=== PATIENT | male | born 1930 | race Hispanic/Latino ===

== ENCOUNTER 2018-04-18 09:58 | Emergency (ER) | payer MEDICARE ==
[2018-04-18 10:06] VITALS: BP 137/54
--- NOTE | 2018-04-18 13:19 | Emergency Department Report ---
Blank Doc - Documentation Documentation: 87yo male with no significant past medical history came in complaining of a low back pain for one week. Patient states he has had back pain for years and has got back surgery in the past. Patient with back pain is 5 out of 10 nonradiating no urinary or bowel incontinence no loss of sensation or strength.Denies nausea vomiting chest pain shortness of breath. Patient denies fever chills. Patient is under no acute distress. Patient relaxing in bed. Patient is refusing blood work, All risks explained
--- NOTE | 2018-04-18 13:44 | Cat Scan Report ---
CT LUMBAR SPINE WITHOUT CONTRAST: History: Back pain. Technique: Helical CT with sagittal and coronal reformatted images. Findings: There is multilevel degenerative disc disease and facet arthropathy. L2-3 and L5-S1 are the most affected levels. There is no evidence for compression deformity, subluxation or bone lesion. The posterior elements are in appropriate relationship. Although intraspinal contents are poorly imaged on CT, no central canal stenosis is appreciated. Impression: Lumbar spondylosis. No acute process detected.
[2018-04-18 13:45] LABS: Bilirubin,Urine NEG (Negative); Blood,Urine NEG (Negative); Color,Urine Yellow (Yellow); Protein,Urine <15 mg/dL mg/dL (Negative); Urobilinogen,Urine < 2.0 mg/dL (<2.0)
--- NOTE | 2018-04-18 14:29 | Emergency Department Report ---
ED Back Pain/Injury HPI - General Chief Complaint: Back Pain/Injury Stated Complaint: BACK PAIN Time Seen by Provider: 04/18/18 12:55 Source: patient Limitations: No Limitations - History of Present Illness Initial Comments: 87-year-old male no significant past medical history came in complaining of low back pain for one week. Pt has had a history of surgery in the past and states that it is worse with movement and is better with rest. Patient denies any nausea vomiting chest pain shortness of breath. Pt denies any fever or chills. Patient denies any injury or bowel incontinence. Pt denies any loss of sensation or strength. Patient has no saddle anesthesia. Patient is refusing blood work, all risks explained. MD Complaint: back pain -: Gradual, week(s) Similar Symptoms Previously: Yes Radiation: none Severity: mild Severity scale (0 -10): 5 Quality: aching Consistency: intermittent Improves With: immobilization Worsens With: movement Associated Symptoms: denies: confusion, weakness, chest pain, numbness, difficulty walking, cough, difficulty urinating, diaphoresis, incontinence, fever/chills, constipation, headaches, abdominal pain, loss of appetite, malaise , nausea/vomiting, rash, seizure, shortness of breath, syncope Treatments Prior to Arrival: acetaminophen - Related Data Previous Rx's Medication Instructions Recorded Last Taken Type traMADol [Ultram] 50 mg PO Q6HR PRN #8 tablet 04/18/18 Unknown Rx Allergies Allergy/AdvReac Type Severity Reaction Status Date / Time iodine Allergy Anaphylaxis Verified 04/18/18 10:01 ED Review of Systems ROS: Stated complaint: BACK PAIN Other details as noted in HPI Constitutional: denies: chills, fever Eyes: denies: eye pain, eye discharge, vision change ENT: denies: ear pain, throat pain Respiratory: denies: cough, shortness of breath, wheezing Cardiovascular: denies: chest pain, palpitations Endocrine: no symptoms reported Gastrointestinal: denies: abdominal pain, nausea, diarrhea Genitourinary: denies: urgency, dysuria Musculoskeletal: denies: back pain, joint swelling, arthralgia Skin: denies: rash, lesions Neurological: denies: headache, weakness, paresthesias Psychiatric: denies: anxiety, depression Hematological/Lymphatic: denies: easy bleeding, easy bruising ED Past Medical Hx - Past Medical History Hx Hypertension: Yes Additional medical history: high cholesterol - Surgical History Additional Surgical History: tonsillectomy, nerve removed from back. - Social History Smoking Status: Never Smoker Substance Use Type: None - Medications Home Medications: Home Medications Medication Instructions Recorded Confirmed Last Taken Type traMADol [Ultram] 50 mg PO Q6HR PRN #8 tablet 04/18/18 Unknown Rx ED Physical Exam - General Limitations: No Limitations General appearance: alert, in no apparent distress - Head Head exam: Present: atraumatic, normocephalic - Eye Eye exam: Present: normal appearance - ENT ENT exam: Present: mucous membranes moist - Neck Neck exam: Present: normal inspection - Respiratory Respiratory exam: Present: normal lung sounds bilaterally. Absent: respiratory distress - Cardiovascular Cardiovascular Exam: Present: regular rate, normal rhythm. Absent: systolic murmur, diastolic murmur, rubs, gallop - GI/Abdominal GI/Abdominal exam: Present: soft, normal bowel sounds - Rectal Rectal exam: Present: deferred - Extremities Exam Extremities exam: Present: normal inspection - Back Exam Back exam: Present: normal inspection, tenderness (+slightly tender to palpation of lower back, no loss of sensation or strength, good pulses present, no urine or bowel incontinence, no neurological symptoms) - Neurological Exam Neurological exam: Present: alert, oriented X3 - Psychiatric Psychiatric exam: Present: normal affect, normal mood - Skin Skin exam: Present: warm, dry, intact, normal color. Absent: rash ED Course Vital Signs 04/18/18 10:01 Temperature 97.7 F Pulse Rate 66 Respiratory 18 Rate Blood Pressure 137/54 O2 Sat by Pulse 96 Oximetry ED Medical Decision Making - Medical Decision Making 87 shoulder with no significant past medical history came in complaining of low back pain for 1 week. Patient denies any urinary or bowel incontinence. Patient denies any nausea vomiting chest pain shortness of breath. Patient denies any fever or chills. no saddle anesthesia. Patient CT scan shows a radiologist read: spondylolysis, no acute process I tried to convince patient did do blood work and EKG. Patient is refusing and wants to leave, all risks explained. At the time of disposition patient is in no acute distress. Patient will follow with his family doctor. Critical care attestation.: If time is entered above; I have spent that time in minutes in the direct care of this critically ill patient, excluding procedure time. ED Disposition Clinical Impression: Back pain, Spondylosis Disposition: DC- TO HOME OR SELFCARE Is pt being admited?: No Does the pt Need Aspirin: No Condition: Stable Instructions: Low Back Strain (ED) Prescriptions: traMADol [Ultram] 50 mg PO Q6HR PRN #8 tablet PRN Reason: Pain Referrals: MODE GLOVER MD [Staff Physician] - 3-5 Days
== END 2018-04-18 14:49 | disposition home or self-care (01) ==
LOC: ED 09:58
DX: M47.9 Spondylosis, unspecified (principal); M54.5 Low back pain; I10 Essential (primary) hypertension; E78.00 Pure hypercholesterolemia, unspecified; Z91.02 Food additives allergy status
CPT/HCPCS: 72131; 81001

== ENCOUNTER 2018-08-27 12:29 | Emergency (ER) | payer MEDICARE ==
[2018-08-27 13:40] LABS: Basophils % (Auto) 0.4 % (0.0-1.8); Eosinophils # (Auto) 0.1 K/mm3 (0.0-0.4); Eosinophils % (Auto) 1.5 % (0.0-4.3); Hematocrit 35.3 % (35.5-45.6); Hemoglobin 12.1 gm/dl (11.8-15.2); Lymphocytes # (Auto) 1.5 K/mm3 (1.2-5.4); Mean Corpuscular HGB Conc 34 % (32-34); Mean Corpuscular Hemoglobin 33 pg (28-32); Mean Corpuscular Volume 97 fl (84-94); Monocytes # (Auto) 0.5 K/mm3 (0.0-0.8); Platelet Count 133 K/mm3 (140-440); Red Blood Count 3.66 M/mm3 (3.65-5.03); Red Cell Distribution Width 14.7 % (13.2-15.2)
[2018-08-27 13:42] LABS: Creatine Kinase MB 1.7 ng/mL (0.0-4.0)
[2018-08-27 13:45] LABS: Alanine Aminotransferase 12 units/L (7-56); Albumin 4.3 g/dL (3.9-5); BUN/Creatinine Ratio 18; Blood Urea Nitrogen 14 mg/dL (9-20); Calcium 9.1 mg/dL (8.4-10.2); Hemolysis Index 8
[2018-08-27 13:47] LABS: INR 1.01 (0.87-1.13)
[2018-08-27 13:48] LABS: Partial Thromboplastin Time 30.3 Sec. (24.2-36.6)
[2018-08-27 13:51] LABS: Free T4 (Free Thyroxine) 1.2 ng/dL (0.76-1.46)
--- NOTE | 2018-08-27 14:06 | Emergency Department Report ---
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 He denies any room spinning sensation. He denies feeling as if he is going to pass out. He denies any vision change, slurred speech, shortness of breath, chest pain. He just feels as if he is unable to ambulate well for feel of falling over. He also has a past medical history of high cholesterol and hypertension. He called his primary care physician, Dr. Michael Bingham, who told him to come to the emergency department for further evaluation. No recent travel or sick contacts at home. He otherwise has not taken anything for his symptoms prior to presentation other than his normal home medications. ED Past Medical Hx - Past Medical History Hx Hypertension: Yes Additional medical history: high cholesterol/ VERTIGO - Surgical History Additional Surgical History: tonsillectomy, nerve removed from back. - Social History Smoking Status: Former Smoker Substance Use Type: None - Medications Home Medications: Home Medications Medication Instructions Recorded Confirmed Last Taken Type traMADol [Ultram] 50 mg PO Q6HR PRN #8 tablet 04/18/18 Unknown Rx ED Review of Systems ROS: Stated complaint: DIZZY Other details as noted in HPI Comment: All other systems reviewed and negative Constitutional: denies: chills, fever Eyes: denies: eye pain, eye discharge, vision change ENT: denies: ear pain, throat pain Respiratory: denies: cough, shortness of breath, wheezing Cardiovascular: denies: chest pain, palpitations Gastrointestinal: denies: abdominal pain, nausea, diarrhea Genitourinary: denies: urgency, dysuria Musculoskeletal: denies: back pain, joint swelling, arthralgia Skin: denies: rash, lesions Neurological: other (dizziness, feeling off balance). denies: weakness Physical Exam - Physical Exam Vital Signs: Vital Signs 08/27/18 12:48 Temperature 97.6 F Pulse Rate 54 L Respiratory 20 Rate Blood Pressure 135/64 O2 Sat by Pulse 97 Oximetry Physical Exam: GENERAL: The patient is well-developed well-nourished. HENT: Normocephalic. Atraumatic. Patient has moist mucous membranes. EYES: Extraocular motions are intact. Pupils equal reactive to light bilaterally. There is some fatigable horizontal nystagmus. NECK: Supple. Trachea is midline. CHEST/LUNGS: Clear to auscultation. There is no respiratory distress noted. HEART/CARDIOVASCULAR: Regular. There is no tachycardia. There is no murmur. ABDOMEN: Abdomen is soft, nontender. Patient has normal bowel sounds. There is no abdominal distention. SKIN: Skin is warm and dry. NEURO: The patient is awake, alert, and oriented. The patient is cooperative. The patient has no focal neurologic deficits. The patient has normal speech and gait. Cranial nerves II through XII grossly intact. No pronator drift. No dysmetria. MUSCULOSKELETAL: There is no tenderness or deformity. There is no limitation range of motion. There is no evidence of acute injury. ED Course Vital Signs 08/27/18 12:48 Temperature 97.6 F Pulse Rate 54 L Respiratory 20 Rate Blood Pressure 135/64 O2 Sat by Pulse 97 Oximetry - Consultations Consultation #1: 08/27/18 20:36 I spoke with the neurosurgeon supervisor [employer] and can supply at [facility], Dr. 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 He feels that the aneurysm is very small in size and given the patient's advanced age there is a very low probability of aneurysmal rupture and that the patient does not appear to require any immediate intervention or transfer at this time. He was able to give me the names of Sage Renteria and Asif Sparks, for the patient to follow up with outpatient. ED Medical Decision Making - Lab Data Result diagrams: 08/27/18 13:07 08/27/18 13:07 - EKG Data -: EKG Interpreted by Me EKG shows normal: sinus rhythm, axis, intervals (prolonged LA interval), QRS complexes (right bundle-branch block), ST-T waves Rate: bradycardia (54 bpm) - EKG Data When compared to previous EKG there are: previous EKG unavailable Interpretation: other (sinus bradycardia at 54 bpm, prolonged LA interval, right bundle branch block) - Radiology Data Radiology results: report reviewed CT HEAD WITHOUT CONTRAST: HISTORY: Dizziness. TECHNIQUE: Sequential CT images without contrast. FINDINGS: Images obtained show bilateral prominence of the sulci and ventricles. There are no abnormal intra- or extra-axial blood or fluid collections. There are no focal masses or evidence of mass effect. The swift white matter differentiation appears within normal limits. Regions of periventricular decreased attenuation are consistent with microangiopathic ischemic disease. The posterior fossa structures including the fourth ventricle, cerebellum, and brainstem appear normal. IMPRESSION: Evidence of atrophy and microangiopathic ischemic disease. No acute intracranial process noted. Transcribed By: TTR Dictated By: KHUSHBU BECKFORD JR, MD Electronically Authenticated By: KHUSHBU BECKFORD JR, MD Signed Date/Time: 08/27/18 1500 EXAM: CT ANGIO HEAD HISTORY: Dizziness, dysequilibrium, headache TECHNIQUE: Following IV administration of 100 cc of Omnipaque 350 axial helical imaging was performed through the brain with sagittal and coronal reformatted images and maximum intensity projection images obtained. Comparison: CT angiogram neck also performed today FINDINGS: There is mild fusiform aneurysmal dilatation (3.3 millimeters) of the M2 segment of the left middle cerebral artery at the trifurcation. There is no other evidence of aneurysm and no evidence of occlusion or hemodynamically significant stenosis of the major intracranial arteries. There is normal enhancement of the major intracranial venous structures. The ventricles are normal size. The visualized portions of the orbits, paranasal and mastoid sinuses are notable for mild to moderate bilateral ethmoid and maxillary sinus mucosal thickening with air-fluid levels in the maxillary sinuses. IMPRESSION: 1. Approximately 3.3 millimeter fusiform aneurysmal dilatation of the M2 segment of the left middle cerebral artery at the trifurcation. 2. No other evidence of aneurysm and no evidence of occlusion or hemodynamically significant stenosis of the major intracranial arteries. 3. Paranasal sinus mucosal thickening with air-fluid levels. This may represent changes of acute sinusitis. Transcribed By: ED Dictated By: BARBARA GRAY MD Electronically Authenticated By: BARBARA GRAY MD Signed Date/Time: 08/27/18 1646 EXAM: CT ANGIO NECK HISTORY: Dizziness, dysequilibrium, headache TECHNIQUE: Following IV administration of 100 cc of Omnipaque 350 axial helical imaging was performed through the neck with maximum intensity projection images obtained. Comparison: CT angiogram brain also performed today FINDINGS: There is normal enhancement of the cervical carotid and vertebral arteries without evidence of occlusion, stenosis, dissection or aneurysm. The vertebral arteries are codominant. There is atherosclerotic vascular calcification at the carotid bifurcation bilaterally. There is cervical spondylosis with multiple level degenerative disc and endplate change and multiple level degenerative facet change. The cervical soft tissues are notable for an approximately 2.4 centimeter nodule in the isthmus of the thyroid gland and approximately 1 centimeter nodule in the right lobe of the thyroid. IMPRESSION: 1. No evidence of occlusion, stenosis, dissection or aneurysm of the cervical carotid or vertebral arteries. 2. Cervical spondylosis. 3. Thyroid nodules. Comparison with previous imaging studies would be helpful. If no prior studies are available for comparison, nonemergent thyroid ultrasound may be helpful. Transcribed By: ED Dictated By: BARBARA GRAY MD Electronically Authenticated By: BARBARA GRAY MD Signed Date/Time: 08/27/18 6698 - Medical Decision Making This patient presents with the complaint of some dizziness as if he is unstable or having some disequilibrium. He felt that it was different from his vertigo which he treats compliantly. A CT scan of the head was done that does not show any bleed, shift, mass or any other acute process. EKG did not show any signs of ST elevation AR, ischemia or dysrhythmia. All the labs were unremarkable including a CBC, CMP, troponin, thyroid. To rule out a posterior atypical CVA, a CT angiography of the head and neck were done. 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 I spoken to a neurosurgeon at [facility], per the consultation section, and this does not require any immediate intervention or transfer to another facility and was given a few different names of appropriate neurosurgeons for outpatient follow- up. Patient was reevaluated multiple times over multiple hours and is feeling greatly improved. He no longer has any dizziness, lightheadedness or feelings of instability. He was seen walking around the emergency department multiple times and appeared stable while doing so. He has no focal, motor or sensory deficits and his cranial nerves and then intact. Vital signs stable throughout his ED course. I spoke with the patient in great detail regarding his lab and imaging results and the plan/need for outpatient follow-up with neurosurgery. He understands and agrees to the plan. - Differential Diagnosis vertigo, dysrhythmia, CVA, TIA, brain bleed, malignancy Critical Care Time: No Critical care attestation.: If time is entered above; I have spent that time in minutes in the direct care of this critically ill patient, excluding procedure time. ED Disposition Clinical Impression: Brain aneurysm, Dizziness Disposition: DC-01 TO HOME OR SELFCARE Is pt being admited?: No Condition: Stable Instructions: Lightheadedness (ED), Dizziness (ED) Additional Instructions: I have given you a name/referral for 2 different neurosurgeons to follow-up regarding your brain aneurysm that was found. Please return to the closest emergency department with any return of your symptoms, if element of headache, vision change, slurred speech or any neurological deficits, or with any acute distress. Referrals: Sage Renteria [Other] - 3-5 Days (Offices at [place] and [place]) Asif Sparks [Other] - 3-5 Days ([facility]) PRIMARY CARE, [Primary Care Provider] - 3-5 Days - Assessment Assessment Interval: Baseline - Level of Consciousness 1a. Level of Consciousness: alert/keenly responsive - LOC Questions 1b. LOC Questions: answers both correctly - LOC Command 1c. LOC Commands: performs tasks correctly - Best Gaze 2. Best Gaze: normal - Visual 3. Visual: no visual loss - Facial Palsy 4. Facial Palsy: normal symmetrical movement - Motor Arm 5b. Motor Arm Right: no drift 5a. Motor Arm Left: no drift - Motor Leg 6a. Motor Leg Left: no drift 6b. Motor Leg Right: no drift - Limb Ataxia 7. Limb Ataxia: absent - Sensory 8. Sensory: normal - Best Language 9. Best Language: no aphasia - Dysarthria 10. Dysarthria: normal - Extinction and Inattention 11. Extinction/Inattention: no abnormality - Scoring Total Score: 0 Stroke Severity: No Stroke Symptoms
--- NOTE | 2018-08-27 15:02 | Cat Scan Report ---
CT HEAD WITHOUT CONTRAST: HISTORY: Dizziness. TECHNIQUE: Sequential CT images without contrast. FINDINGS: Images obtained show bilateral prominence of the sulci and ventricles. There are no abnormal intra- or extra-axial blood or fluid collections. There are no focal masses or evidence of mass effect. The swift white matter differentiation appears within normal limits. Regions of periventricular decreased attenuation are consistent with microangiopathic ischemic disease. The posterior fossa structures including the fourth ventricle, cerebellum, and brainstem appear normal. IMPRESSION: Evidence of atrophy and microangiopathic ischemic disease. No acute intracranial process noted.
[2018-08-27 16:28] LABS: Bilirubin,Urine NEG (Negative); Blood,Urine NEG (Negative); Color,Urine Straw (Yellow); Protein,Urine <15 mg/dL mg/dL (Negative); Urobilinogen,Urine < 2.0 mg/dL (<2.0); WBC,Urine < 1.0 /HPF (0.0-6.0)
--- NOTE | 2018-08-27 16:47 | Cat Scan Report ---
FINAL REPORT EXAM: CT ANGIO HEAD HISTORY: Dizziness, dysequilibrium, headache TECHNIQUE: Following IV administration of 100 cc of Omnipaque 350 axial helical imaging was performed through the brain with sagittal and coronal reformatted images and maximum intensity projection images obtained. Comparison: CT angiogram neck also performed today FINDINGS: There is mild fusiform aneurysmal dilatation (3.3 millimeters) of the M2 segment of the left middle cerebral artery at the trifurcation. There is no other evidence of aneurysm and no evidence of occlusion or hemodynamically significant stenosis of the major intracranial arteries. There is normal enhancement of the major intracranial venous structures. The ventricles are normal size. The visualized portions of the orbits, paranasal and mastoid sinuses are notable for mild to moderate bilateral ethmoid and maxillary sinus mucosal thickening with air-fluid levels in the maxillary sinuses. IMPRESSION: 1. Approximately 3.3 millimeter fusiform aneurysmal dilatation of the M2 segment of the left middle cerebral artery at the trifurcation. 2. No other evidence of aneurysm and no evidence of occlusion or hemodynamically significant stenosis of the major intracranial arteries. 3. Paranasal sinus mucosal thickening with air-fluid levels. This may represent changes of acute sinusitis.
--- NOTE | 2018-08-27 16:54 | Cat Scan Report ---
FINAL REPORT EXAM: CT ANGIO NECK HISTORY: Dizziness, dysequilibrium, headache TECHNIQUE: Following IV administration of 100 cc of Omnipaque 350 axial helical imaging was performed through the neck with maximum intensity projection images obtained. Comparison: CT angiogram brain also performed today FINDINGS: There is normal enhancement of the cervical carotid and vertebral arteries without evidence of occlusion, stenosis, dissection or aneurysm. The vertebral arteries are codominant. There is atherosclerotic vascular calcification at the carotid bifurcation bilaterally. There is cervical spondylosis with multiple level degenerative disc and endplate change and multiple level degenerative facet change. The cervical soft tissues are notable for an approximately 2.4 centimeter nodule in the isthmus of the thyroid gland and approximately 1 centimeter nodule in the right lobe of the thyroid. IMPRESSION: 1. No evidence of occlusion, stenosis, dissection or aneurysm of the cervical carotid or vertebral arteries. 2. Cervical spondylosis. 3. Thyroid nodules. Comparison with previous imaging studies would be helpful. If no prior studies are available for comparison, nonemergent thyroid ultrasound may be helpful.
[2018-08-27 18:25] VITALS: BP 145/52
== END 2018-08-27 18:35 | disposition home or self-care (01) ==
LOC: ED 12:29
DX: I67.1 Cerebral aneurysm, nonruptured (principal); R42 Dizziness and giddiness; I10 Essential (primary) hypertension; E78.00 Pure hypercholesterolemia, unspecified; Z87.891 Personal history of nicotine dependence
CPT/HCPCS: 36415; 70450; 70496; 70498; 80053; 81001; 82550; 82553; 83880; 84439; 84443; 84484; 85025; 85610; 85730; 93005; 93010; 99284; Q9967

== ENCOUNTER 2019-08-20 12:31 | Inpatient (IN) | payer MEDICARE ==
[2019-08-20] MEDS ORDERED: AMIODARONE 150 MG in DEXTROSE 5% IN WATER 97 ML IV ONE (13:38)
[2019-08-20] MEDS ORDERED: ONDANSETRON 4 MG/2 ML INJ ONE (13:40)
[2019-08-20 13:45] LABS: Basophils % (Auto) 0.5 % (0.0-1.8); Eosinophils % (Auto) 0.5 % (0.0-4.3); Hematocrit 31.9 % (35.5-45.6); Hemoglobin 10.8 gm/dl (11.8-15.2); Lymphocytes # (Auto) 0.5 K/mm3 (1.2-5.4); Lymphocytes % (Auto) 12.2 % (13.4-35.0); Mean Corpuscular HGB Conc 34 % (32-34); Mean Corpuscular Volume 97 fl (84-94); Monocytes # (Auto) 0.2 K/mm3 (0.0-0.8); Monocytes % (Auto) 5.1 % (0.0-7.3); Platelet Count 161 K/mm3 (140-440); Red Blood Count 3.29 M/mm3 (3.65-5.03); Red Cell Distribution Width 15.3 % (13.2-15.2)
[2019-08-20 13:56] LABS: INR 1.13 (0.87-1.13)
[2019-08-20 13:57] LABS: Partial Thromboplastin Time 30.2 Sec. (24.2-36.6)
[2019-08-20] MEDS ORDERED: AMIODARONE 900 MG in DEXTROSE 5% IN WATER 482 ML IV SCH (14:00)
--- NOTE | 2019-08-20 14:03 | Emergency Department Report ---
ED General Adult HPI - General Chief complaint: Nausea/Vomiting/Diarrhea Stated complaint: N/V Time Seen by Provider: 08/20/19 13:14 Source: patient, EMS Mode of arrival: Stretcher Limitations: Other - History of Present Illness Initial comments: This is an 88-year-old man who came to the hospital after a bout of diarrhea at home. Nursing reported that the patient had soiled himself and stated that he apparently lost control of his urine and bowels. At the time of my encounter complained of nausea but stated he did not vomit. He apparently told the drill press set up operator said he had some lower abdominal discomfort but denied abdominal pain to me. While I was conducting a fairly detailed review of systems, the patient who was prior conscious and awake alert and answering questions perfectly appropriately with normal vital signs had conjugate gaze deviation to the right. I immediately tried to arouse him while I checked his monitor. It showed evidence of ventricular fibrillation shortly after his apparent brief seizure. Immediately, I began chest compressions and called for assistance. The chest compressions probably were of 10-15 seconds of duration when the patient regained his pulses. He was quite pale during the episode, of course. Upon regaining his pulses he looked quite erythematous but was able to communicate. His blood pressure was regained. He asked us if he "went to sleep". He continued to complain of nausea and was given ondansetron. A 12-lead EKG was obtained which showed a right bundle branch block and no evidence of ST elevation [place]. I elected to begin him on amiodarone. Cardiology was consulted and they are at the bedside now. His electrolytes etc. are yet pending. At no time did the patient complain of any chest pain or dyspnea. Severity scale (0 -10): 0 - Related Data Previous Rx's Medication Instructions Recorded Last Taken Type traMADol [Ultram] 50 mg PO Q6HR PRN #8 tablet 04/18/18 Unknown Rx Allergies Allergy/AdvReac Type Severity Reaction Status Date / Time iodine Allergy Anaphylaxis Verified 08/27/18 12:48 ED Review of Systems ROS: Stated complaint: N/V Other details as noted in HPI Constitutional: malaise, weakness. denies: chills, fever Eyes: denies: eye pain, eye discharge, vision change ENT: denies: ear pain, throat pain Respiratory: denies: cough, shortness of breath, wheezing Cardiovascular: denies: chest pain, palpitations Endocrine: no symptoms reported Gastrointestinal: abdominal pain, diarrhea, other (equal urinary incontinence). denies: nausea Genitourinary: denies: urgency, dysuria Musculoskeletal: denies: back pain, joint swelling, arthralgia Skin: denies: rash, lesions Neurological: denies: headache, weakness, paresthesias Psychiatric: denies: anxiety, depression Hematological/Lymphatic: denies: easy bleeding, easy bruising ED Past Medical Hx - Past Medical History Hx Hypertension: Yes Hx Dementia: Yes Additional medical history: high cholesterol/ VERTIGO - Surgical History Additional Surgical History: tonsillectomy, nerve removed from back. - Social History Smoking Status: Former Smoker Substance Use Type: None - Medications Home Medications: Home Medications Medication Instructions Recorded Confirmed Last Taken Type traMADol [Ultram] 50 mg PO Q6HR PRN #8 tablet 04/18/18 Unknown Rx ED Physical Exam - General Limitations: Other (initial exam) General appearance: alert, in no apparent distress - Head Head exam: Present: atraumatic, normocephalic - Eye Eye exam: Present: normal appearance. Absent: scleral icterus - ENT ENT exam: Present: mucous membranes moist - Neck Neck exam: Present: normal inspection. Absent: tenderness, meningismus - Respiratory Respiratory exam: Present: normal lung sounds bilaterally. Absent: respiratory distress - Cardiovascular Cardiovascular Exam: Present: regular rate, normal rhythm. Absent: systolic murmur, diastolic murmur, rubs, gallop - GI/Abdominal GI/Abdominal exam: Present: soft, normal bowel sounds. Absent: distended, tenderness, guarding, rebound, rigid - Rectal Rectal exam: Present: deferred - Extremities Exam Extremities exam: Present: normal inspection - Back Exam Back exam: Present: normal inspection - Neurological Exam Neurological exam: Present: alert, oriented X3, CN II-XII intact. Absent: motor sensory deficit - Psychiatric Psychiatric exam: Present: normal affect, normal mood - Skin Skin exam: Present: warm, dry, intact, normal color. Absent: rash ED Course Vital Signs 08/20/19 08/20/19 08/20/19 13:09 13:16 13:17 Temperature 97.4 F L Pulse Rate 55 L 58 L Respiratory 10 L 17 10 L Rate Blood Pressure 132/54 132/54 Blood Pressure 132/54 [Right] O2 Sat by Pulse 94 86 94 Oximetry 08/20/19 08/20/19 08/20/19 13:30 14:00 14:30 Temperature Pulse Rate 63 56 L 54 L Respiratory 12 10 L 13 Rate Blood Pressure 140/63 156/69 143/60 Blood Pressure [Right] O2 Sat by Pulse 95 97 96 Oximetry 08/20/19 15:01 Temperature Pulse Rate 53 L Respiratory 20 Rate Blood Pressure 150/69 Blood Pressure [Right] O2 Sat by Pulse 100 Oximetry - Reevaluation(s) Reevaluation #1: Pt has been seen by cardiology and referred to Dr. Mcdowell, Hospitalist staff for further evaluation. 08/20/19 14:50 ED Medical Decision Making - Lab Data Result diagrams: 08/20/19 13:23 08/20/19 13:23 Laboratory Results - last 24 hr 08/20/19 08/20/19 13:23 13:23 WBC 4.2 L RBC 3.29 L Hgb 10.8 L Hct 31.9 L MCV 97 H MCH 33 H MCHC 34 RDW 15.3 H Plt Count 161 Lymph % (Auto) 12.2 L [place] % (Auto) 5.1 Eos % (Auto) 0.5 Baso % (Auto) 0.5 Lymph # 0.5 L [place] # 0.2 Eos # 0.0 Baso # 0.0 Seg Neutrophils % 81.7 H Seg Neutrophils # 3.4 PT 14.2 INR 1.13 APTT 30.2 - EKG Data -: EKG Interpreted by Id EKG shows normal: sinus rhythm - EKG Data Interpretation: other (right bundle-branch block) Critical Care Time: Yes Critical care time in (mins) excluding proc time.: 60 Critical care attestation.: If time is entered above; I have spent that time in minutes in the direct care of this critically ill patient, excluding procedure time. ED Disposition Clinical Impression: Ventricular fibrillation, Right bundle branch block Disposition: - OP ADMIT IP TO THIS HOSP Is pt being admited?: Yes Does the pt Need Aspirin: Yes Condition: Stable Referrals: PRIMARY CARE, [Primary Care Provider] - 3-5 Days Time of Disposition: 14:53
[2019-08-20 14:12] LABS: Creatine Kinase MB 3.9 ng/mL (0.0-4.0)
[2019-08-20 14:13] LABS: Alanine Aminotransferase 8 units/L (7-56); BUN/Creatinine Ratio 24; Blood Urea Nitrogen 17 mg/dL (9-20); Calcium 8.7 mg/dL (8.4-10.2); Hemolysis Index 2
[2019-08-20] MEDS ORDERED: POTASSIUM CHLORIDE ER 20 MEQ TAB PO ONE ×2 (14:39→17:16)
--- NOTE | 2019-08-20 14:49 | Consultation ---
History of Present Illness Consult date: 08/20/19 Requesting physician: DENNISE MOSLEY Consult reason: other (vfib) History of present illness: The pt is an 88-year-old male with a past medical history of HTN, HLP, RBBB, Meniere's disease. He has been seen in our office in the past by Dr. Rios (last seen 10/2016). He presented with c/o nausea, vomiting, diarrhea, weakness and overall "feeling sick". While being evaluated in ED by Dr. Mosley, pt was noted to develop a blank stare with conjugate gaze deviation to the right (? seizure) and superintendent operations division showed ventricular fibrillation shortly after his apparent brief seizure. Immediately, Dr. Mosley chest compressions and called for assistance. The chest compressions lasted approx 10-15 seconds when the patient regained his pulses and began to regain consciousness. He asked if he "went to sleep". He continued to complain of nausea and was given ondansetron. A 12- lead EKG was obtained which showed a right bundle branch block and no evidence of ST elevation [place]. He has been initiated on IV amiodarone. On evaluation, pt does not recall the VF event. He simply states that he "feels sick" and c/o chills. He denies any current chest pain, palpitation, diaphoresis. Lexiscan MPI stress test done 09/2009 showed small to mod size partially reversible mild inferobasal perfusion defect, EF 61%. Past History Past Medical History: hypertension, hyperlipidemia, other (Meniere's disease) Medications and Allergies Allergies Allergy/AdvReac Type Severity Reaction Status Date / Time iodine Allergy Anaphylaxis Verified 08/27/18 12:48 Home Medications Medication Instructions Recorded Confirmed Last Taken Type traMADol [Ultram] 50 mg PO Q6HR PRN #8 tablet 04/18/18 Unknown Rx Active Meds: Active Medications Amiodarone HCl 900 mg/ (Dextrose) 500 mls @ 33.333 mls/hr IV DIRECT WILFRED; Protocol Last Admin: 08/20/19 14:46 Dose: 1 mg/min, 33.333 mls/hr Documented by: Review of Systems Constitutional: chills, weakness, no weight loss, no weight gain Ears, nose, mouth and throat: no ear pain, no nose pain, no sinus pressure, no sinus pain Cardiovascular: no chest pain, no orthopnea, no palpitations, no rapid/irregular heart beat, no edema, no lightheadedness, no shortness of breath, no dyspnea on exertion, no leg edema Respiratory: no cough, no shortness of breath, no dyspnea on exertion, no congestion, no wheezing, no pain on inspiration Gastrointestinal: nausea, vomiting, diarrhea, no abdominal pain, no constipation, no hematemesis, no coffee ground emesis, no BRBPR, no hematochezia Genitourinary Male: no dysuria, no hematuria, no flank pain, no urinary frequency, no urinary hesitancy Musculoskeletal: no neck stiffness, no neck pain, no shooting arm pain, no arm numbness/tingling, no low back pain Integumentary: no rash, no pruritis, no redness, no sores, no wounds Neurological: no head injury, no paralysis, no weakness, no parathesias, no numbness, no tingling Psychiatric: no anxiety Endocrine: no cold intolerance Hematologic/Lymphatic: no easy bruising, no easy bleeding Allergic/Immunologic: no urticaria, no wheezing Physical Examination Vital Signs Temp Pulse Resp BP Pulse Ox 97.4 F L 55 L 10 L 132/54 94 08/20/19 13:09 08/20/19 13:08/20/19 13:08/20/19 13:08/20/19 13:09 General appearance: no acute distress HEENT: Positive: PERRL, Normocephaly, Mucus Membranes Moist Neck: Positive: neck supple, trachea midline Cardiac: Positive: Reg Rate and Rhythm, S1/S2 Lungs: Positive: clear to auscultation Neuro: Positive: Grossly Intact Abdomen: Negative: Tender Skin: Negative: Rash Musculoskeletal: No Pain Extremities: Absent: edema Results 08/20/19 13:23 08/20/19 13:23 Cardiac Enzymes 08/20/19 08/20/19 Range/Units 13:23 13:23 AST 18 (5-40) units/L CK-MB (CK-2) 3.9 (0.0-4.0) ng/mL Coagulation 08/20/19 Range/Units 13:23 PT 14.2 (12.2-14.9) Sec. INR 1.13 (0.87-1.13) APTT 30.2 (24.2-36.6) Sec. CBC 08/20/19 Range/Units 13:23 WBC 4.2 L (4.5-11.0) K/mm3 RBC 3.29 L (3.65-5.03) M/mm3 Hgb 10.8 L (11.8-15.2) gm/dl Hct 31.9 L (35.5-45.6) % Plt Count 161 (140-440) K/mm3 Lymph # 0.5 L (1.2-5.4) K/mm3 [place] # 0.2 (0.0-0.8) K/mm3 Eos # 0.0 (0.0-0.4) K/mm3 Baso # 0.0 (0.0-0.1) K/mm3 Comprehensive Metabolic Panel 08/20/19 Range/Units 13:23 Sodium 140 (137-145) mmol/L Potassium 3.5 L (3.6-5.0) mmol/L Chloride 103.9 (98-107) mmol/L Carbon Dioxide 22 (22-30) mmol/L BUN 17 (9-20) mg/dL Creatinine 0.7 L (0.8-1.5) mg/dL Glucose 123 H (75-100) mg/dL Calcium 8.7 (8.4-10.2) mg/dL AST 18 (5-40) units/L ALT 8 (7-56) units/L Alkaline Phosphatase 73 (35-129) units/L Total Protein 6.5 (6.3-8.2) g/dL Albumin 4.0 (3.9-5) g/dL - Imaging and Cardiology Echo: pending EKG: report reviewed, image reviewed EKG interpretations - Telemetry EKG Rhythm: Sinus Rhythm - EKG Sinus rhythms and dysrhythmias: sinus rhythm AV and intraventricular conduction: right bundle branch block Assessment and Plan Pt presented with n/v/d. He was witnessed to have a brief bout of VFib in ED. ECG with RBBB (which appears chronic), no acute ischemic changes, trop negative x 1. Pt has been seen by Dr. Rios in the past. Lexiscan MPI stress test done 09/2009 showed small to mod size partially reversible mild inferobasal perfusion defect, EF 61%. Coronary angiography recommended for definitive diagnosis. Will tentatively plan for LHC on 08/23/2019. Obtain echo. Agree with IV amio. Further recs to follow per hospital course. The patient has been seen in conjunction with Dr. Marie who agrees with the assessment and plan of care. - Patient Problems (1) Ventricular fibrillation Current Visit: Yes Status: Acute (2) Nausea vomiting and diarrhea Current Visit: Yes Status: Acute (3) Seizure Current Visit: Yes Status: Suspected (4) HTN (hypertension) Current Visit: Yes Status: Chronic (5) Hyperlipidemia Current Visit: Yes Status: Chronic (6) Abnormal stress test Current Visit: Yes Status: Chronic (7) Right bundle branch block Current Visit: Yes Status: Chronic (8) Meniere's disease Current Visit: Yes Status: Chronic
[2019-08-20] MEDS ORDERED: ASPIRIN 81 MG TAB CHEW PO ONE (14:53)
--- NOTE | 2019-08-20 15:23 | XRay Report ---
CHEST 1 VIEW INDICATION: Arrhythmia. Nausea, vomiting, diarrhea. COMPARISON: None similar. FINDINGS: Portable, single, frontal chest radiograph demonstrates slight exaggerated though grossly n ormal cardiomediastinal silhouette. Slight left lower lung horizontal densities may represent atelect asis or scarring. Otherwise clear lungs without pleural effusions or CHF. Demineralized bones with fe w degenerative changes. EKG leads. IMPRESSION: No acute chest process, as described. Direct comparison with prior imaging would also be helpful, if available. Signer Name: Keesha Saldaña Signed: 08/20/2019 3:18 PM Workstation Name: [id number]
[2019-08-20] MEDS ORDERED: SODIUM CHLORIDE 0.9% 500 ML 500 ML IV SCH (16:00)
[2019-08-20] MEDS ORDERED: ASPIRIN 81 MG TAB CHEW ONE (17:15)
[2019-08-20] MEDS ORDERED: ACETAMINOPHEN 325 MG TAB PO PRN (21:00)
[2019-08-20] MEDS ORDERED: METOCLOPRAMIDE 10 MG/2 ML INJ IV PRN (21:00)
[2019-08-20] MEDS ORDERED: ONDANSETRON 4 MG/2 ML INJ IV PRN (21:00)
[2019-08-20] MEDS: FAMOTIDINE 20 MG/2 ML INJ IV SCH (21:44)
[2019-08-20] MEDS: HYDROmorphone 1 MG/1 ML INJ IV PRN (21:45)
[2019-08-20] MEDS: SODIUM CHLORIDE 0.9% 1000 ML 1,000 ML IV SCH (21:45)
[2019-08-20] MEDS ORDERED: PANTOPRAZOLE 40 MG INJ IV SCH (22:00)
[2019-08-20] MEDS: METOPROLOL TARTRATE 50 MG TAB PO SCH (22:17)
[2019-08-21 00:16] LABS: Bilirubin,Urine NEG (Negative); Blood,Urine NEG (Negative); Color,Urine Yellow (Yellow); Hyaline Casts,Urine 2 /LPF; Mucus,Urine FEW /HPF; Protein,Urine <15 mg/dL mg/dL (Negative)
[2019-08-21] MEDS: HYDROmorphone 1 MG/1 ML INJ IV PRN ×2 (04:57→21:18)
[2019-08-21] MEDS: ASPIRIN 325 MG TAB PO SCH (07:00)
--- NOTE | 2019-08-21 07:39 | Event Note ---
Date: 08/20/19 See H/p in reports Arrhythmias--???V fib with perfect resolution Acute Gastroenteritis Syncope
[2019-08-21] MEDS: SODIUM CHLORIDE 0.9% 1000 ML 1,000 ML IV SCH ×2 (08:29→19:00)
[2019-08-21] MEDS: METOPROLOL TARTRATE 50 MG TAB PO SCH ×2 (09:23→21:20)
[2019-08-21] MEDS: FAMOTIDINE 20 MG/2 ML INJ IV SCH ×2 (09:23→21:19)
--- NOTE | 2019-08-21 11:23 | History and Physical Report ---
CHIEF COMPLAINT: 1. Nausea and vomiting, multiple times. 2. Ventricular fibrillation while in the Emergency Room. HISTORY OF PRESENT ILLNESS: An 88-year-old male with past medical history of hypertension, hyperlipidemia, right bundle branch block, comes in for nausea, vomiting, diarrhea and weakness for one day. In the Emergency Room, the patient was actively vomiting. While in the Emergency Room, the patient developed a blank stare with conjugate deviation to the right and apparently monitoring and evaluation advisor showed ventricular fibrillation, because of which chest compressions were done for 10 to 15 seconds, after which there was spontaneous resolution of the V-fib with normal sinus rhythm. Repeat EKG showed right bundle branch block and no ST elevation. The patient was initiated on IV amiodarone for questionable transient ventricular fibrillation, hence admission to the ICU. No shortness of breath. The patient looks normal otherwise. Talking normally. Vomiting into emesis bag. PAST MEDICAL HISTORY: Hypertension, mild dementia and hyperlipidemia. PAST SURGICAL HISTORY: Tonsillectomy. SOCIAL HISTORY: Does not smoke. Former smoker. FAMILY HISTORY: Hypertension. CURRENT MEDICATION: Tramadol. REVIEW OF SYSTEMS: Significant for nausea, vomiting, and diarrhea and generalized weakness and passing out while in the Emergency Room with questionable ventricular fibrillation. Otherwise, review of systems negative. PHYSICAL EXAMINATION: GENERAL: Elderly male, cooperative during examination. VITAL SIGNS: Blood pressure is _140/82 mm hg temperature is 98, pulse is 46; and initial pulse was also low around 55, blood pressure 132/54. HEENT: Unremarkable. NECK: Supple, no lymphadenopathy, no thyromegaly. LUNGS: Clear to auscultation and percussion. Good air entry. CARDIOVASCULAR: S1, S2 heard. No gallop, no murmur, no rub. Apical impulse in left fifth intercostal space and midclavicular line. ABDOMEN: Soft and benign. Hernial orifices are normal. EXTREMITIES: Good pedal pulses. No pedal edema. CENTRAL NERVOUS SYSTEM: Alert and oriented x 4. LABORATORY DATA: EKG shows sinus bradycardia, heart rate of 54 per minute. Right bundle branch block. White count of 4200, H and H of 10.8 and 31.9, platelet count of 161,000. Sodium of 140, potassium of 3.5, chloride of 103, BUN and creatinine of 17 and 0.9, glucose of 123. Urine is normal. Repeat EKG shows heart rate of 49 per minute, right bundle branch block. ASSESSMENT AND PLAN: 1. Arrhythmias with questionable ventricular fibrillation. The patient initiated on amiodarone drip. The patient is to be switched to p.o. amiodarone in the next 12-24 hours. Sinus bradycardia. We will defer to Cardiology. Bradycardia is reasonable. No need for pacemaker at this point. 2. Acute gastritis. Continue Protonix and advance to clear liquids. 3. Hypertension. Continue antihypertensives. 4. Deep venous thrombosis prophylaxis, Lovenox 40 mg subcutaneous daily. We will also get echocardiogram. JOB# [id number] DILSHAD/MANNIE CARSON
--- NOTE | 2019-08-21 13:15 | Progress Note ---
Assessment and Plan - Patient Problems (1) Ventricular fibrillation Current Visit: Yes Status: Acute Plan to address problem: Ventricular fibrillation cardiac consult. Left heart cath on Friday. Echocardiogram pending. Troponin negative amiodarone initiated. (2) HTN (hypertension) Current Visit: Yes Status: Chronic Plan to address problem: Present has fair control blood pressure continue current beta ronak at this time. (3) Hyperlipidemia Current Visit: Yes Status: Chronic Plan to address problem: Continue statin LDL goal less than 70. (4) Meniere's disease Current Visit: Yes Status: Resolved (5) Seizure Current Visit: Yes Status: Suspected Plan to address problem: Patient just 1 episode of seizure activity would not initiate Or anything like that is particular time we'll observe. History Interval history: Patient 88 years old with a history of hypertension hyperlipidemia right bundle branch block Mnire's disease presented with nausea vomiting diarrhea weakness. Patient had a brief what appeared to be seizure activity along with ventricular fibrillation. Patient received CPR chest compressions in the ED and within 15 seconds his sensorium and pulse returned to normal. Patient was placed on amiodarone initial troponins negative. Patient evaluated by cardiology plan for left heart catheterization on Friday. Echo is pending. at present is regarding concerns feel good no chest pain no arrhythmias on exam since that time. resting comfortably no new concerns. Hospitalist Physical - Constitutional Vitals: Temp Pulse Resp BP Pulse Ox 97.3 F L 52 L 19 122/51 96 08/21/19 12:00 08/21/19 12:11 08/21/19 12:11 08/21/19 12:11 08/21/19 12:11 General appearance: Present: no acute distress - EENT Eyes: Present: PERRL, EOM intact ENT: hearing intact, clear oral mucosa, dentition normal - Neck Neck: Present: supple, normal ROM - Respiratory Respiratory: bilateral: CTA - Cardiovascular Rhythm: regular Heart Sounds: Present: S1 & S2 - Extremities Extremities: no ischemia, pulses intact, pulses symmetrical, No edema, normal temperature, normal color, Full ROM Peripheral Pulses: within normal limits - Abdominal General gastrointestinal: soft, non-tender, non-distended, normal bowel sounds, no hepatomegaly, no splenomegaly, no mass - Integumentary Integumentary: Present: clear, warm, dry - Psychiatric Psychiatric: appropriate mood/affect, intact judgment & insight - Neurologic Neurologic: CNII-XII intact, focal deficits, moves all extremities Results - Labs CBC & Chem 7: 08/20/19 13:23 08/20/19 13:23 Labs: Laboratory Last Values WBC 4.2 K/mm3 (4.5-11.0) L 08/20/19 13:23 RBC 3.29 M/mm3 (3.65-5.03) L 08/20/19 13:23 Hgb 10.8 gm/dl (11.8-15.2) L 08/20/19 13:23 Hct 31.9 % (35.5-45.6) L 08/20/19 13:23 MCV 97 fl (84-94) H 08/20/19 13:23 MCH 33 pg (28-32) H 08/20/19 13:23 MCHC 34 % (32-34) 08/20/19 13:23 RDW 15.3 % (13.2-15.2) H 08/20/19 13:23 Plt Count 161 K/mm3 (140-440) 08/20/19 13:23 Lymph % (Auto) 12.2 % (13.4-35.0) L 08/20/19 13:23 [place] % (Auto) 5.1 % (0.0-7.3) 08/20/19 13:23 Eos % (Auto) 0.5 % (0.0-4.3) 08/20/19 13:23 Baso % (Auto) 0.5 % (0.0-1.8) 08/20/19 13:23 Lymph # 0.5 K/mm3 (1.2-5.4) L 08/20/19 13:23 [place] # 0.2 K/mm3 (0.0-0.8) 08/20/19 13:23 Eos # 0.0 K/mm3 (0.0-0.4) 08/20/19 13:23 Baso # 0.0 K/mm3 (0.0-0.1) 08/20/19 13:23 Seg Neutrophils % 81.7 % (40.0-70.0) H 08/20/19 13:23 Seg Neutrophils # 3.4 K/mm3 (1.8-7.7) 08/20/19 13:23 PT 14.2 Sec. (12.2-14.9) 08/20/19 13:23 INR 1.13 (0.87-1.13) 08/20/19 13:23 APTT 30.2 Sec. (24.2-36.6) 08/20/19 13:23 Sodium 140 mmol/L (137-145) 08/20/19 13:23 Potassium 3.5 mmol/L (3.6-5.0) L 08/20/19 13:23 Chloride 103.9 mmol/L (98-107) 08/20/19 13:23 Carbon Dioxide 22 mmol/L (22-30) 08/20/19 13:23 18 mmol/L 08/20/19 13:23 BUN 17 mg/dL (9-20) 08/20/19 13:23 0.7 mg/dL (0.8-1.5) L 08/20/19 13:23 Estimated GFR > 60 ml/min 08/20/19 13:23 24 % 08/20/19 13:23 Glucose 123 mg/dL (75-100) H 08/20/19 13:23 POC Glucose 80 (70-105) 08/21/19 09:51 5.0 % (4-6) 08/20/19 21:00 Calcium 8.7 mg/dL (8.4-10.2) 08/20/19 13:23 Magnesium 2.00 mg/dL (1.7-2.3) 08/20/19 13:23 0.90 mg/dL (0.1-1.2) 08/20/19 13:23 AST 18 units/L (5-40) 08/20/19 13:23 ALT 8 units/L (7-56) 08/20/19 13:23 73 units/L (35-129) 08/20/19 13:23 106 units/L (55-170) 08/20/19 13:23 CK-MB (CK-2) 3.9 ng/mL (0.0-4.0) 08/20/19 13:23 CK-MB (CK-2) Rel Index 3.6 (0-4) 08/20/19 13:23 < 0.010 ng/mL (0.00-0.029) 08/21/19 03:50 6.5 g/dL (6.3-8.2) 08/20/19 13:23 4.0 g/dL (3.9-5) 08/20/19 13:23 1.6 % 08/20/19 13:23 21 units/L (13-60) 08/20/19 13:23 Yellow (Yellow) 08/21/19 00:00 Clear (Clear) 08/21/19 00:00 6.0 (5.0-7.0) 08/21/19 00:00 Ur Specific [place] 1.025 (1.003-1.030) 08/21/19 00:00 <15 mg/dl mg/dL (Negative) 08/21/19 00:00 Neg mg/dL (Negative) 08/21/19 00:00 20 mg/dL (Negative) 08/21/19 00:00 Neg (Negative) 08/21/19 00:00 Neg (Negative) 08/21/19 00:00 Neg (Negative) 08/21/19 00:00 2.0 mg/dL (<2.0) 08/21/19 00:00 Ur Leukocyte Esterase Neg (Negative) 08/21/19 00:00 2.0 /HPF (0.0-6.0) 08/21/19 00:00 3.0 /HPF (0.0-6.0) 08/21/19 00:00 U Epithel Cells (Auto) 2.0 /HPF (0-13.0) 08/21/19 00:00 Hyaline Casts 2 /LPF 08/21/19 00:00 Few /HPF 08/21/19 00:00 Blood Type O NEGATIVE 08/21/19 03:55 Antibody Screen Negative 08/21/19 03:55 Active Medications - Current Medications Current Medications: Generic Name Dose Route Start Last Admin Trade Name Freq PRN Reason Stop Dose Admin Acetaminophen 650 mg 08/20/19 21:00 Tylenol PO Q4H PRN Pain MILD(1-3)/Fever >100.5/HALL Aspirin 325 mg 08/21/19 10:00 08/21/19 07:00 Aspirin PO 325 mg QDAY WILFRED Administration Atorvastatin Calcium 20 mg 08/20/19 22:00 08/20/19 21:47 Lipitor PO 20 mg QHS WILFRED Administration Famotidine 20 mg 08/20/19 22:00 08/21/19 09:23 Pepcid IV 20 mg BID WILFRED Administration Hydromorphone HCl 0.5 mg 08/20/19 21:00 08/21/19 04:57 Dilaudid IV 0.5 mg Q3H PRN Administration Pain , Severe (7-10) Amiodarone HCl 900 mg/ 500 mls @ 33.333 mls/hr 08/20/19 14:00 08/20/19 20:45 Dextrose IV 0.5 mg/min DIRECT WILFRED 16.667 mls/hr Titration Protocol 1 MG/MIN Sodium Chloride 1,000 mls @ 100 mls/hr 08/20/19 21:00 08/21/19 08:29 Nacl 0.9% 1000 Ml IV 100 mls/hr DIRECT WILFRED Administration Metoclopramide HCl 10 mg 08/20/19 21:00 Reglan IV Q6H PRN Nausea And Vomiting Metoprolol Tartrate 25 mg 08/20/19 22:00 08/21/19 09:23 Lopressor PO Not Given BID WILFRED Ondansetron HCl 4 mg 08/20/19 21:00 Zofran IV Q3H PRN Nausea And Vomiting Sodium Chloride 10 ml 08/20/19 22:00 08/21/19 09:24 Sodium Chloride Flush Syringe 10 Ml IV 10 ml BID WILFRED Administration Sodium Chloride 10 ml 08/20/19 21:00 Sodium Chloride Flush Syringe 10 Ml IV PRN PRN LINE FLUSH
--- NOTE | 2019-08-21 14:11 | Progress Note ---
Assessment and Plan Patient is known to have hypertension and right bundle branch block followed by Dr. Hi in the past. Patient Presents to to the emergency room where he ended up having a episode of ventricular fibrillation and he was defibrillated and the currently doing reasonably well. He is scheduled to have a cardiac cath on Friday for further cardiac evaluation. Patient appears to be stable at this time. Continue current management - Patient Problems (1) Ventricular fibrillation Current Visit: Yes Status: Acute (2) HTN (hypertension) Current Visit: Yes Status: Chronic (3) Hyperlipidemia Current Visit: Yes Status: Chronic (4) Right bundle branch block Current Visit: Yes Status: Chronic Subjective Date of service: 08/21/19 Interval history: Patient is comfortable today denies chest pain difficulty breathing or palpitations. Objective Vital Signs Temp Pulse Pulse Resp BP BP Pulse Ox 08/21/19 13:41 47 L 19 126/51 98 08/21/19 13:31 45 L 20 126/51 98 08/21/19 13:21 51 L 22 126/51 98 08/21/19 13:11 48 L 18 126/51 97 08/21/19 13:01 55 L 16 126/51 97 08/21/19 13:00 48 L 19 98 08/21/19 12:51 56 L 15 122/51 97 08/21/19 12:41 51 L 16 122/51 98 08/21/19 12:31 56 L 17 122/51 95 08/21/19 12:21 57 L 20 122/51 97 08/21/19 12:11 52 L 19 122/51 96 08/21/19 12:00 97.3 F L 46 L 22 122/51 98 08/21/19 11:51 44 L 16 113/62 98 08/21/19 11:41 46 L 19 113/62 97 08/21/19 11:31 43 L 17 113/62 98 08/21/19 11:21 45 L 14 113/62 97 08/21/19 11:11 46 L 18 113/62 98 08/21/19 11:00 48 L 13 122/58 98 08/21/19 10:51 50 L 13 113/62 99 08/21/19 10:41 45 L 18 113/62 99 08/21/19 10:31 45 L 17 113/62 97 08/21/19 10:21 49 L 14 113/62 98 08/21/19 10:11 44 L 19 113/62 96 08/21/19 10:00 49 L 12 113/62 95 08/21/19 09:51 44 L 15 115/31 95 08/21/19 09:41 49 L 10 L 115/31 96 08/21/19 09:31 46 L 18 115/31 98 08/21/19 09:23 47 L 115/31 08/21/19 09:21 46 L 18 115/31 95 08/21/19 09:11 54 L 13 115/31 97 08/21/19 09:01 42 L 15 115/31 96 08/21/19 09:00 50 L 21 96 08/21/19 08:51 44 L 15 122/32 97 08/21/19 08:41 45 L 14 122/32 98 08/21/19 08:31 43 L 16 122/32 96 08/21/19 08:21 45 L 17 122/32 94 08/21/19 08:11 41 L 16 122/32 95 08/21/19 08:01 48 L 16 122/32 97 08/21/19 08:00 98.1 F 08/21/19 07:51 46 L 17 110/29 96 08/21/19 07:41 43 L 15 110/29 98 08/21/19 07:31 41 L 15 110/29 98 08/21/19 07:21 47 L 17 110/29 96 08/21/19 07:11 53 L 10 L 110/29 96 08/21/19 07:01 43 L 17 101/26 96 08/21/19 06:51 46 L 20 101/26 97 08/21/19 06:41 47 L 11 L 101/26 97 08/21/19 06:31 45 L 16 101/26 94 08/21/19 06:21 49 L 16 90 08/21/19 06:10 38 L 16 101/26 94 08/21/19 06:00 42 L 10 L 101/26 96 08/21/19 05:50 41 L 14 121/46 96 08/21/19 05:40 42 L 13 121/46 95 08/21/19 05:30 47 L 15 121/46 97 08/21/19 05:20 39 L 12 121/46 97 08/21/19 05:10 46 L 13 121/46 98 09/28/19 05:00 44 L 45 L 15 121/46 96 08/21/19 04:50 42 L 15 122/54 96 08/21/19 04:40 46 L 9 L 122/54 97 08/21/19 04:30 53 L 12 122/54 96 08/21/19 04:20 46 L 19 122/54 97 08/21/19 04:10 46 L 17 122/54 96 08/21/19 04:00 97.8 F 50 L 17 120/58 97 08/21/19 03:50 50 L 13 120/58 97 08/21/19 03:40 47 L 15 120/58 97 08/21/19 03:30 48 L 16 120/58 97 08/21/19 03:20 43 L 14 120/58 97 08/21/19 03:10 43 L 15 120/58 97 08/21/19 03:00 45 L 14 120/58 96 08/21/19 02:50 141 H 117/46 95 08/21/19 02:40 46 L 18 117/46 97 08/21/19 02:30 43 L 18 117/46 96 08/21/19 02:20 44 L 17 117/46 96 08/21/19 02:10 49 L 17 117/46 97 08/21/19 02:00 46 L 17 117/46 97 08/21/19 01:50 51 L 14 114/54 97 08/21/19 01:40 48 L 16 114/54 97 08/21/19 01:30 53 L 15 114/54 96 08/21/19 01:20 52 L 17 114/54 97 08/21/19 01:14 48 L 18 97 08/21/19 01:10 46 L 17 114/54 98 08/21/19 01:00 50 L 15 114/54 98 08/21/19 00:50 45 L 16 136/59 96 08/21/19 00:40 49 L 12 136/59 99 08/21/19 00:30 49 L 16 136/59 99 08/21/19 00:20 49 L 15 136/59 97 08/21/19 00:10 49 L 16 136/59 98 08/21/19 00:00 57 L 18 136/59 95 08/20/19 23:50 62 18 149/86 97 08/20/19 23:40 59 L 18 149/86 94 08/20/19 23:36 97.5 F L 08/20/19 23:30 59 L 12 148/53 97 08/20/19 23:20 50 L 12 148/53 98 08/20/19 23:10 51 L 13 145/55 99 08/20/19 23:00 54 L 17 145/55 98 08/20/19 22:50 52 L 13 154/56 97 08/20/19 22:40 57 L 18 150/54 97 08/20/19 22:36 51 L 10 L 150/54 96 08/20/19 22:30 56 L 12 150/54 97 08/20/19 22:20 49 L 12 147/53 98 08/20/19 22:17 50 L 08/20/19 22:10 49 L 9 L 116/66 96 08/20/19 22:00 52 L 16 147/58 99 08/20/19 21:50 55 L 17 147/58 97 08/20/19 21:40 62 12 147/58 99 08/20/19 21:30 52 L 9 L 147/58 96 08/20/19 21:20 50 L 10 L 80/61 95 08/20/19 21:10 58 L 14 141/59 98 08/20/19 21:00 55 L 16 141/59 97 08/20/19 20:50 58 L 15 138/59 95 08/20/19 20:40 56 L 10 L 146/66 96 08/20/19 20:30 52 L 52 L 14 146/66 96 08/20/19 20:27 57 L 11 L 08/20/19 20:10 53 L 11 L 147/63 97 08/20/19 20:00 59 L 20 147/63 97 08/20/19 19:50 59 L 15 147/63 97 08/20/19 19:40 54 L 13 147/63 98 08/20/19 19:34 53 L 10 L 135/64 99 08/20/19 19:30 55 L 10 L 147/63 96 08/20/19 19:20 63 12 135/64 99 08/20/19 19:10 58 L 12 135/64 98 08/20/19 19:00 53 L 13 135/64 96 08/20/19 18:50 61 13 147/91 98 08/20/19 18:40 56 L 13 147/91 98 08/20/19 18:30 55 L 10 L 146/67 08/20/19 18:20 58 L 15 146/67 99 08/20/19 18:10 62 11 L 146/67 98 08/20/19 18:00 61 12 146/67 95 08/20/19 17:50 57 L 17 152/63 94 08/20/19 17:40 57 L 14 152/63 96 08/20/19 17:30 58 L 17 152/63 94 08/20/19 17:20 56 L 14 147/60 96 08/20/19 17:10 60 21 147/60 99 08/20/19 17:00 59 L 14 147/60 08/20/19 16:50 59 L 16 148/44 99 08/20/19 16:40 55 L 12 148/44 99 08/20/19 16:30 12 148/44 98 08/20/19 16:20 17 138/51 99 08/20/19 16:10 19 138/51 98 08/20/19 16:00 20 138/67 100 08/20/19 15:50 13 138/67 99 08/20/19 15:40 16 138/67 97 08/20/19 15:30 20 138/67 85 08/20/19 15:20 56 L 11 L 150/69 90 08/20/19 15:10 46 L 13 150/69 100 08/20/19 15:01 53 L 20 150/69 100 08/20/19 14:30 54 L 13 143/60 96 - Physical Examination General: Appears Well HEENT: Positive: PERRL, Normocephaly, Mucus Membranes Moist Neck: Positive: neck supple, trachea midline Cardiac: Positive: Reg Rate and Rhythm Lungs: Positive: clear to auscultation Neuro: Positive: Grossly Intact Abdomen: Positive: Soft. Negative: Tender Skin: Negative: Rash Musculoskeletal: No Pain Extremities: Absent: edema - Labs and Meds Cardiac Enzymes 08/20/19 08/20/19 Range/Units 13:23 13:23 AST 18 (5-40) units/L CK-MB (CK-2) 3.9 (0.0-4.0) ng/mL Comprehensive Metabolic Panel 08/20/19 Range/Units 13:23 Sodium 140 (137-145) mmol/L Potassium 3.5 L (3.6-5.0) mmol/L Chloride 103.9 (98-107) mmol/L Carbon Dioxide 22 (22-30) mmol/L BUN 17 (9-20) mg/dL Creatinine 0.7 L (0.8-1.5) mg/dL Glucose 123 H (75-100) mg/dL Calcium 8.7 (8.4-10.2) mg/dL AST 18 (5-40) units/L ALT 8 (7-56) units/L Alkaline Phosphatase 73 (35-129) units/L Total Protein 6.5 (6.3-8.2) g/dL Albumin 4.0 (3.9-5) g/dL - Imaging and Cardiology EKG: report reviewed, image reviewed Echo: pending - EKG Sinus rhythms and dysrhythmias: sinus rhythm AV and intraventricular conduction: right bundle branch block
--- NOTE | 2019-08-21 14:59 | Consultation ---
History of Present Illness - Reason for Consult Consult date: 08/21/19 Vfib arrest Requesting physician: SIL ANSARI - History of Present Illness 88 y/o man who actually came to the ED for several days of nausea and vomiting subsequently passed out in the ED and was found to be in Vfib arrest. CPR was started and patient had ROSC without any drug therapy it appears. Patient thought he went to sleep. He also may have had a seizure or seizure like activity right before this based on the ED note. He is scheduled for [facility] on Friday and is in the ICU for observation give his presentation. Past History Past Medical History: hypertension, hyperlipidemia, other (Meniere's disease) Medications and Allergies Allergies Allergy/AdvReac Type Severity Reaction Status Date / Time iodine Allergy Anaphylaxis Verified 08/27/18 12:48 Home Medications Medication Instructions Recorded Confirmed Last Taken Type traMADol [Ultram] 50 mg PO Q6HR PRN #8 tablet 04/18/18 08/20/19 Unknown Rx Active Meds: Active Medications Acetaminophen (Tylenol) 650 mg PO Q4H PRN PRN Reason: Pain MILD(1-3)/Fever >100.5/HALL Aspirin (Aspirin) [address] [facility] Last Admin: 08/21/19 07:00 Dose: 325 mg Documented by: Atorvastatin Calcium (Lipitor) [address] [facility] Last Admin: 08/20/19 21:47 Dose: 20 mg Documented by: Famotidine (Pepcid) [address] [facility] Last Admin: 08/21/19 09:23 Dose: 20 mg Documented by: Hydromorphone HCl (Dilaudid) 0.5 mg IV Q3H PRN PRN Reason: Pain , Severe (7-10) Last Admin: 08/21/19 04:57 Dose: 0.5 mg Documented by: Sodium Chloride (Nacl 0.9% 1000 Ml) 1,000 mls @ 100 mls/hr IV DIRECT [facility] Last Admin: 08/21/19 08:29 Dose: 100 mls/hr Documented by: Amiodarone HCl 900 mg/ (Dextrose) 500 mls @ 16.667 mls/hr IV DIRECT [facility]; Protocol Metoclopramide HCl (Reglan) 10 mg IV Q6H PRN PRN Reason: Nausea And Vomiting Metoprolol Tartrate (Lopressor) [address] [facility] Last Admin: 08/21/19 09:23 Dose: Not Given Documented by: Ondansetron HCl (Zofran) 4 mg IV Q3H PRN PRN Reason: Nausea And Vomiting Sodium Chloride (Sodium Chloride Flush Syringe 10 Ml) [address] [facility] Last Admin: 08/21/19 09:24 Dose: 10 ml Documented by: Sodium Chloride (Sodium Chloride Flush Syringe 10 Ml) 10 ml IV PRN PRN PRN Reason: LINE FLUSH Review of Systems All systems: negative Exam - Constitutional Vitals: Temp Pulse Resp BP Pulse Ox 97.3 F L 47 L 19 126/51 98 08/21/19 12:00 08/21/19 13:41 08/21/19 13:41 08/21/19 13:41 08/21/19 13:41 Results - Labs CBC & Chem 7: 08/20/19 13:23 08/20/19 13:23 Labs: Abnormal lab results 08/20/19 08/21/19 08/21/19 Range/Units 22:02 01:56 05:11 POC Glucose 122 H 130 H 123 H (70-105) - Imaging and Cardiology Chest x-ray: image reviewed (no evidence of acute lung disease) Assessment and Plan 88 y/o male with sinus bradycardia, vfib arrest after what sounds like seizure like activity. 1. Echo done but not read yet 2. Scheduled for [facility] on Friday 3. No labs today, so ordered CMP with Mag and Phos, and CBC for today. 4. Continue amio but close monitoring of bradycardia. So far asymptomatic.
[2019-08-21] MEDS ORDERED: AMIODARONE 900 MG in DEXTROSE 5% IN WATER 482 ML IV SCH (15:00)
[2019-08-21 15:35] LABS: Hemoglobin 10.5 gm/dl (11.8-15.2); Mean Corpuscular HGB Conc 34 % (32-34); Mean Corpuscular Volume 98 fl (84-94); Platelet Count 157 K/mm3 (140-440); Red Blood Count 3.17 M/mm3 (3.65-5.03); Red Cell Distribution Width 15.3 % (13.2-15.2)
[2019-08-21 16:29] LABS: Alanine Aminotransferase 7 units/L (7-56); Albumin 3.5 g/dL (3.9-5); BUN/Creatinine Ratio 20; Blood Urea Nitrogen 16 mg/dL (9-20); Calcium 7.9 mg/dL (8.4-10.2); Hemolysis Index 4
[2019-08-21] MEDS ORDERED: diphenhydrAMINE 50 MG/ML VIAL IV ONE (23:17)
[2019-08-22] MEDS ORDERED: LORazepam 2 MG/ML VIAL IV ONE (01:15)
[2019-08-22] MEDS: HYDROmorphone 1 MG/1 ML INJ IV PRN ×3 (01:28→21:31)
[2019-08-22] MEDS: SODIUM CHLORIDE 0.9% 1000 ML 1,000 ML IV SCH ×2 (04:55→15:00)
[2019-08-22] MEDS: ASPIRIN 325 MG TAB PO SCH (10:00)
[2019-08-22] MEDS: METOPROLOL TARTRATE 50 MG TAB PO SCH ×2 (10:00→21:32)
[2019-08-22] MEDS: FAMOTIDINE 20 MG/2 ML INJ IV SCH ×2 (10:00→21:32)
--- NOTE | 2019-08-22 11:24 | Progress Note ---
Assessment and Plan Patient is known to have hypertension and right bundle branch block followed by Dr. Hi in the past. Patient Presents to to the emergency room where he ended up having a episode of ventricular fibrillation and he was defibrillated and the currently doing reasonably well. He is scheduled to have a cardiac cath on Friday for further cardiac evaluation. Patient appears to be stable at this time. Continue current management - Patient Problems (1) Ventricular fibrillation Current Visit: Yes Status: Acute (2) HTN (hypertension) Current Visit: Yes Status: Chronic (3) Hyperlipidemia Current Visit: Yes Status: Chronic (4) Right bundle branch block Current Visit: Yes Status: Chronic Subjective Date of service: 08/22/19 Interval history: Patient is comfortable today denies chest pain difficulty breathing or palpitations. Patient is scheduled for cardiac catheterization tomorrow. During the night he needed restraints. Objective Vital Signs Temp Pulse Pulse Resp BP Pulse Ox 08/22/19 11:11 59 L 14 132/57 97 08/22/19 11:01 62 16 142/61 95 08/22/19 10:51 56 L 21 143/51 95 08/22/19 10:41 62 18 143/51 95 08/22/19 10:31 62 13 143/51 95 08/22/19 10:21 59 L 17 143/51 97 08/22/19 10:11 64 15 143/51 98 08/22/19 10:01 68 12 143/51 95 08/22/19 10:00 55 L 143/51 08/22/19 09:51 99 H 16 148/66 93 08/22/19 09:41 48 L 15 148/66 96 08/22/19 09:35 97.1 F L 08/22/19 09:31 43 L 15 148/66 96 08/22/19 09:21 46 L 12 148/66 96 08/22/19 09:11 47 L 15 148/66 96 08/22/19 09:00 47 L 59 L 15 148/66 94 08/22/19 08:51 52 L 21 139/59 97 08/22/19 08:41 60 14 139/59 97 08/22/19 08:31 62 24 139/59 94 08/22/19 08:21 46 L 15 139/59 95 08/22/19 08:11 48 L 16 139/59 95 09/29/19 08:00 48 L 15 139/59 94 08/22/19 07:51 50 L 17 136/55 95 08/22/19 07:41 51 L 15 136/55 94 08/22/19 07:31 51 L 15 136/55 95 08/22/19 07:21 52 L 16 136/55 94 08/22/19 07:11 53 L 15 136/55 95 08/22/19 07:01 52 L 17 136/55 93 08/22/19 06:51 61 15 145/49 94 08/22/19 06:41 55 L 17 145/49 93 08/22/19 06:31 62 18 145/49 95 08/22/19 06:21 79 15 145/49 94 08/22/19 06:11 75 16 145/49 95 08/22/19 06:01 78 11 L 145/49 93 08/22/19 05:51 79 14 118/52 93 08/22/19 05:41 66 21 118/52 93 08/22/19 05:31 73 17 118/52 91 08/22/19 05:21 47 L 13 118/52 94 08/22/19 05:10 48 L 15 118/52 93 08/22/19 05:01 51 L 15 118/52 92 08/22/19 05:00 53 L 20 98 08/22/19 04:51 52 L 17 162/71 92 08/22/19 04:41 51 L 15 162/71 93 08/22/19 04:31 54 L 17 162/71 91 08/22/19 04:21 55 L 17 162/71 92 08/22/19 04:11 60 13 162/71 94 08/22/19 04:01 86 22 162/71 93 08/22/19 03:51 74 25 H 158/63 90 08/22/19 03:41 77 13 158/63 93 08/22/19 03:31 72 18 158/63 96 08/22/19 03:21 73 24 158/63 92 08/22/19 03:11 70 22 158/63 93 08/22/19 03:01 83 19 158/63 94 08/22/19 02:51 92 H 21 150/60 95 08/22/19 02:41 63 17 150/60 94 08/22/19 02:31 57 L 19 150/60 95 08/22/19 02:21 56 L 12 150/60 95 08/22/19 02:11 61 20 150/60 95 08/22/19 02:01 55 L 21 150/60 95 08/22/19 01:51 56 L 16 160/73 90 08/22/19 01:41 55 L 16 160/73 94 08/22/19 01:31 55 L 15 160/73 95 08/22/19 01:21 54 L 18 125/83 98 08/22/19 01:11 57 L 18 125/83 97 08/22/19 01:01 62 18 160/73 08/22/19 01:00 47 L 18 98 08/22/19 00:51 68 23 139/68 97 08/22/19 00:41 54 L 16 139/68 98 08/22/19 00:31 52 L 16 139/68 84 08/22/19 00:21 51 L 14 139/68 78 L 08/22/19 00:11 53 L 14 139/68 95 08/22/19 00:01 50 L 16 139/68 97 08/22/19 00:00 98.4 F 08/21/19 23:51 46 L 17 146/60 97 08/21/19 23:43 43 L 20 146/60 97 08/21/19 23:41 42 L 19 121/51 97 08/21/19 23:31 44 L 15 121/51 99 08/21/19 23:25 54 L 121/51 08/21/19 23:01 71 17 121/51 96 08/21/19 22:51 46 L 22 121/51 98 08/21/19 22:49 56 L 20 121/51 97 08/21/19 22:41 45 L 18 121/51 98 08/21/19 22:31 46 L 22 121/51 98 08/21/19 22:21 47 L 17 121/51 96 08/21/19 22:11 54 L 14 121/51 96 08/21/19 22:01 48 L 18 121/51 96 08/21/19 22:00 43 L 08/21/19 21:51 63 17 96/38 96 08/21/19 21:41 46 L 16 96/38 97 08/21/19 21:31 46 L 15 96/38 95 08/21/19 21:21 46 L 12 96/38 97 08/21/19 21:20 49 L 08/21/19 21:11 48 L 15 96/38 99 08/21/19 21:01 49 L 12 96/38 98 08/21/19 21:00 47 L 18 98 08/21/19 20:51 43 L 18 118/47 96 08/21/19 20:41 44 L 19 118/47 95 08/21/19 20:31 55 L 14 118/47 96 08/21/19 20:21 54 L 17 118/47 96 08/21/19 20:11 43 L 17 118/47 95 08/21/19 20:00 97.8 F 48 L 9 L 118/47 96 08/21/19 19:51 44 L 18 114/48 97 08/21/19 19:41 52 L 16 114/48 95 08/21/19 19:31 45 L 17 114/48 96 08/21/19 19:21 49 L 11 L 114/48 99 08/21/19 19:11 47 L 23 114/48 98 08/21/19 19:01 49 L 9 L 114/48 97 08/21/19 18:51 52 L 17 108/42 99 08/21/19 18:41 45 L 19 108/42 97 08/21/19 18:31 55 L 11 L 108/42 94 08/21/19 18:21 55 L 18 108/42 99 08/21/19 18:11 64 19 108/42 90 08/21/19 18:00 49 L 15 108/42 98 08/21/19 17:51 48 L 20 110/91 96 08/21/19 17:41 46 L 20 110/91 97 08/21/19 17:31 68 22 110/91 97 08/21/19 17:21 54 L 13 110/91 98 08/21/19 17:11 54 L 11 L 110/91 99 08/21/19 17:01 57 L 17 110/91 97 08/21/19 17:00 49 L 20 98 08/21/19 16:51 46 L 13 111/47 97 08/21/19 16:41 47 L 14 111/47 97 08/21/19 16:31 48 L 13 111/47 97 08/21/19 16:21 46 L 14 111/47 98 08/21/19 16:11 47 L 14 111/47 98 08/21/19 16:00 97.1 F L 47 L 20 111/47 97 08/21/19 15:51 47 L 21 108/45 97 08/21/19 15:41 53 L 19 108/45 98 08/21/19 15:31 47 L 23 108/45 97 08/21/19 15:21 46 L 14 108/45 96 08/21/19 15:10 46 L 14 89/55 99 08/21/19 15:01 46 L 20 89/55 95 08/21/19 14:51 49 L 18 121/50 94 08/21/19 14:41 45 L 14 121/50 98 08/21/19 14:31 46 L 9 L 121/50 96 08/21/19 14:21 51 L 24 121/50 96 08/21/19 14:11 47 L 12 121/50 98 08/21/19 14:01 49 L 22 121/50 97 08/21/19 13:51 45 L 20 126/51 97 08/21/19 13:41 47 L 19 126/51 98 08/21/19 13:31 45 L 20 126/51 98 08/21/19 13:21 51 L 22 126/51 98 08/21/19 13:11 48 L 18 126/51 97 08/21/19 13:01 55 L 16 126/51 97 08/21/19 13:00 48 L 19 98 08/21/19 12:51 56 L 15 122/51 97 08/21/19 12:41 51 L 16 122/51 98 08/21/19 12:31 56 L 17 122/51 95 08/21/19 12:21 57 L 20 122/51 97 08/21/19 12:11 52 L 19 122/51 96 08/21/19 12:00 97.3 F L 46 L 22 122/51 98 08/21/19 11:51 44 L 16 113/62 98 08/21/19 11:41 46 L 19 113/62 97 08/21/19 11:31 43 L 17 113/62 98 - Physical Examination General: Appears Well HEENT: Positive: PERRL, Normocephaly, Mucus Membranes Moist Neck: Positive: neck supple, trachea midline Cardiac: Positive: Regular Rhythm Lungs: Positive: clear to auscultation Neuro: Positive: Grossly Intact Abdomen: Positive: Soft. Negative: Tender Skin: Negative: Rash Musculoskeletal: No Pain Extremities: Present: normal. Absent: edema - Labs and Meds Cardiac Enzymes 08/21/19 Range/Units 15:04 AST 16 (5-40) units/L CBC 08/21/19 Range/Units 15:04 WBC 3.6 L (4.5-11.0) K/mm3 RBC 3.17 L (3.65-5.03) M/mm3 Hgb 10.5 L (11.8-15.2) gm/dl Hct 31.0 L (35.5-45.6) % Plt Count 157 (140-440) K/mm3 Comprehensive Metabolic Panel 08/21/19 Range/Units 15:04 Sodium 138 (137-145) mmol/L Potassium 4.2 (3.6-5.0) mmol/L Chloride 107.9 H (98-107) mmol/L Carbon Dioxide 24 (22-30) mmol/L BUN 16 (9-20) mg/dL Creatinine 0.8 (0.8-1.5) mg/dL Glucose 95 (75-100) mg/dL Calcium 7.9 L (8.4-10.2) mg/dL AST 16 (5-40) units/L ALT 7 (7-56) units/L Alkaline Phosphatase 60 (35-129) units/L Total Protein 5.6 L (6.3-8.2) g/dL Albumin 3.5 L (3.9-5) g/dL - Imaging and Cardiology EKG: report reviewed, image reviewed Echo: pending - EKG Sinus rhythms and dysrhythmias: sinus rhythm AV and intraventricular conduction: right bundle branch block
--- NOTE | 2019-08-22 12:33 | Progress Note ---
Assessment and Plan 88 y/o male with sinus bradycardia, vfib arrest after what sounds like seizure like activity. 1. Systolic heart failure by echo, watch Input/Output 2. Scheduled for C on Friday 3. Labs from yesterday stable. Mag only slightly low at 1.9 4. Continue amio but close monitoring of bradycardia. So far asymptomatic. Subjective Date of service: 08/22/19 Interval history: No acute events. No further ventricular rhythms. Objective - Constitutional Vitals: Vital Signs - 12hr 08/22/19 08/22/19 08/22/19 00:41 00:51 01:00 Temperature Pulse Rate 54 L 68 Pulse Rate [ 47 L Apical] Respiratory 16 23 18 Rate Blood Pressure 139/68 139/68 O2 Sat by Pulse 98 97 98 Oximetry 08/22/19 08/22/19 08/22/19 01:01 01:11 01:21 Temperature Pulse Rate 62 57 L 54 L Pulse Rate [ Apical] Respiratory 18 18 18 Rate Blood Pressure 160/73 125/83 125/83 O2 Sat by Pulse 97 98 Oximetry 08/22/19 08/22/19 08/22/19 01:31 01:41 01:51 Temperature Pulse Rate 55 L 55 L 56 L Pulse Rate [ Apical] Respiratory 15 16 16 Rate Blood Pressure 160/73 160/73 160/73 O2 Sat by Pulse 95 94 90 Oximetry 08/22/19 08/22/19 08/22/19 02:01 02:11 02:21 Temperature Pulse Rate 55 L 61 56 L Pulse Rate [ Apical] Respiratory 21 20 12 Rate Blood Pressure 150/60 150/60 150/60 O2 Sat by Pulse 95 95 95 Oximetry 08/22/19 08/22/19 08/22/19 02:31 02:41 02:51 Temperature Pulse Rate 57 L 63 92 H Pulse Rate [ Apical] Respiratory 19 17 21 Rate Blood Pressure 150/60 150/60 150/60 O2 Sat by Pulse 95 94 95 Oximetry 08/22/19 08/22/19 08/22/19 03:01 03:11 03:21 Temperature Pulse Rate 83 70 73 Pulse Rate [ Apical] Respiratory 19 22 24 Rate Blood Pressure 158/63 158/63 158/63 O2 Sat by Pulse 94 93 92 Oximetry 08/22/19 08/22/19 08/22/19 03:31 03:41 03:51 Temperature Pulse Rate 72 77 74 Pulse Rate [ Apical] Respiratory 18 13 25 H Rate Blood Pressure 158/63 158/63 158/63 O2 Sat by Pulse 96 93 90 Oximetry 08/22/19 08/22/19 08/22/19 04:01 04:11 04:21 Temperature Pulse Rate 86 60 55 L Pulse Rate [ Apical] Respiratory 22 13 17 Rate Blood Pressure 162/71 162/71 162/71 O2 Sat by Pulse 93 94 92 Oximetry 08/22/19 08/22/19 08/22/19 04:31 04:41 04:51 Temperature Pulse Rate 54 L 51 L 52 L Pulse Rate [ Apical] Respiratory 17 15 17 Rate Blood Pressure 162/71 162/71 162/71 O2 Sat by Pulse 91 93 92 Oximetry 08/22/19 08/22/19 08/22/19 05:00 05:01 05:10 Temperature Pulse Rate 51 L 48 L Pulse Rate [ 53 L Apical] Respiratory 20 15 15 Rate Blood Pressure 118/52 118/52 O2 Sat by Pulse 98 92 93 Oximetry 08/22/19 08/22/19 08/22/19 05:21 05:31 05:41 Temperature Pulse Rate 47 L 73 66 Pulse Rate [ Apical] Respiratory 13 17 21 Rate Blood Pressure 118/52 118/52 118/52 O2 Sat by Pulse 94 91 93 Oximetry 08/22/19 08/22/19 08/22/19 05:51 06:01 06:11 Temperature Pulse Rate 79 78 75 Pulse Rate [ Apical] Respiratory 14 11 L 16 Rate Blood Pressure 118/52 145/49 145/49 O2 Sat by Pulse 93 93 95 Oximetry 08/22/19 08/22/19 08/22/19 06:21 06:31 06:41 Temperature Pulse Rate 79 62 55 L Pulse Rate [ Apical] Respiratory 15 18 17 Rate Blood Pressure 145/49 145/49 145/49 O2 Sat by Pulse 94 95 93 Oximetry 08/22/19 08/22/19 08/22/19 06:51 07:01 07:11 Temperature Pulse Rate 61 52 L 53 L Pulse Rate [ Apical] Respiratory 15 17 15 Rate Blood Pressure 145/49 136/55 136/55 O2 Sat by Pulse 94 93 95 Oximetry 08/22/19 08/22/19 08/22/19 07:21 07:31 07:41 Temperature Pulse Rate 52 L 51 L 51 L Pulse Rate [ Apical] Respiratory 16 15 15 Rate Blood Pressure 136/55 136/55 136/55 O2 Sat by Pulse 94 95 94 Oximetry 08/22/19 08/22/19 08/22/19 07:51 08:00 08:11 Temperature Pulse Rate 50 L 48 L 48 L Pulse Rate [ Apical] Respiratory 17 15 16 Rate Blood Pressure 136/55 139/59 139/59 O2 Sat by Pulse 95 94 95 Oximetry 08/22/19 08/22/19 08/22/19 08:21 08:31 08:41 Temperature Pulse Rate 46 L 62 60 Pulse Rate [ Apical] Respiratory 15 24 14 Rate Blood Pressure 139/59 139/59 139/59 O2 Sat by Pulse 95 94 97 Oximetry 08/22/19 08/22/19 08/22/19 08:51 09:00 09:11 Temperature Pulse Rate 52 L 47 L 47 L Pulse Rate [ 59 L Apical] Respiratory 21 15 15 Rate Blood Pressure 139/59 148/66 148/66 O2 Sat by Pulse 97 94 96 Oximetry 08/22/19 08/22/19 08/22/19 09:21 09:31 09:35 Temperature 97.1 F L Pulse Rate 46 L 43 L Pulse Rate [ Apical] Respiratory 12 15 Rate Blood Pressure 148/66 148/66 O2 Sat by Pulse 96 96 Oximetry 08/22/19 08/22/19 08/22/19 09:41 09:51 10:00 Temperature Pulse Rate 48 L 99 H 55 L Pulse Rate [ Apical] Respiratory 15 16 Rate Blood Pressure 148/66 148/66 143/51 O2 Sat by Pulse 96 93 Oximetry 08/22/19 08/22/19 08/22/19 10:01 10:11 10:21 Temperature Pulse Rate 68 64 59 L Pulse Rate [ Apical] Respiratory 12 15 17 Rate Blood Pressure 143/51 143/51 143/51 O2 Sat by Pulse 95 98 97 Oximetry 08/22/19 08/22/19 08/22/19 10:31 10:41 10:51 Temperature Pulse Rate 62 62 56 L Pulse Rate [ Apical] Respiratory 13 18 21 Rate Blood Pressure 143/51 143/51 143/51 O2 Sat by Pulse 95 95 95 Oximetry 08/22/19 08/22/19 11:01 11:11 Temperature Pulse Rate 62 59 L Pulse Rate [ Apical] Respiratory 16 14 Rate Blood Pressure 142/61 132/57 O2 Sat by Pulse 95 97 Oximetry - Labs CBC & Chem 7: 08/21/19 15:04 08/21/19 15:04 Labs: Abnormal lab results 08/21/19 08/21/19 Range/Units 15:04 15:04 WBC 3.6 L (4.5-11.0) K/mm3 RBC 3.17 L (3.65-5.03) M/mm3 Hgb 10.5 L (11.8-15.2) gm/dl Hct 31.0 L (35.5-45.6) % MCV 98 H (84-94) fl MCH 33 H (28-32) pg RDW 15.3 H (13.2-15.2) % Chloride 107.9 H (98-107) mmol/L Calcium 7.9 L (8.4-10.2) mg/dL Phosphorus 2.20 L (2.5-4.5) mg/dL Total Protein 5.6 L (6.3-8.2) g/dL Albumin 3.5 L (3.9-5) g/dL Medications & Allergies - Medications Allergies/Adverse Reactions: Allergies iodine Allergy (Verified 08/27/18 12:48) Anaphylaxis Home Medications: Home Medications Medication Instructions Recorded Confirmed Last Taken Type traMADol [Ultram] 50 mg PO Q6HR PRN #8 tablet 04/18/18 08/20/19 Unknown Rx Active Medications: Generic Name Dose Route Start Last Admin Trade Name Freq PRN Reason Stop Dose Admin Acetaminophen 650 mg 08/20/19 21:00 Tylenol PO Q4H PRN Pain MILD(1-3)/Fever >100.5/HALL Aspirin 325 mg 08/21/19 10:00 08/22/19 10:00 Aspirin PO 325 mg QDAY WILFRED Administration Atorvastatin Calcium 20 mg 08/20/19 22:00 08/21/19 21:19 Lipitor PO 20 mg QHS WILFRED Administration Famotidine 20 mg 08/20/19 22:00 08/22/19 10:00 Pepcid IV 20 mg BID WILFRED Administration Hydromorphone HCl 0.5 mg 08/20/19 21:00 08/22/19 04:54 Dilaudid IV 0.5 mg Q3H PRN Administration Pain , Severe (7-10) Sodium Chloride 1,000 mls @ 100 mls/hr 08/20/19 21:00 08/22/19 04:55 Nacl 0.9% 1000 Ml IV 100 mls/hr DIRECT WILFRED Administration Amiodarone HCl 900 mg/ 500 mls @ 16.667 mls/hr 08/21/19 15:00 08/21/19 12:00 Dextrose IV 0.5 mg/min DIRECT WILFRED 16.667 mls/hr Administration Protocol 0.5 MG/MIN Metoclopramide HCl 10 mg 08/20/19 21:00 Reglan IV Q6H PRN Nausea And Vomiting Metoprolol Tartrate 25 mg 08/20/19 22:00 08/22/19 10:00 Lopressor PO Not Given BID WILFRED Ondansetron HCl 4 mg 08/20/19 21:00 08/22/19 01:28 Zofran IV 4 mg Q3H PRN Administration Nausea And Vomiting Sodium Chloride 10 ml 08/20/19 22:00 08/22/19 10:00 Sodium Chloride Flush Syringe 10 Ml IV 10 ml BID WILFRED Administration Sodium Chloride 10 ml 08/20/19 21:00 Sodium Chloride Flush Syringe 10 Ml IV PRN PRN LINE FLUSH
[2019-08-22] MEDS ORDERED: AMIODARONE 900 MG in DEXTROSE 5% IN WATER 482 ML IV SCH (15:00)
--- NOTE | 2019-08-22 15:40 | Progress Note ---
Assessment and Plan - Patient Problems (1) Ventricular fibrillation Current Visit: Yes Status: Acute Plan to address problem: Ventricular fibrillation cardiac consult. Left heart cath on Friday. Echocardiogram pending. Troponin negative amiodarone initiated. Patient now regularly irregular now. No pain blood pressure stable. Hemodynamically sta ble. (2) HTN (hypertension) Current Visit: Yes Status: Chronic Plan to address problem: Present has fair control blood pressure continue current beta ronak at this time. (3) Hyperlipidemia Current Visit: Yes Status: Chronic Plan to address problem: Continue statin LDL goal less than 70. (4) Meniere's disease Current Visit: Yes Status: Resolved Plan to address problem: No dizziness no problem. Patient able to sit up in bed without difficulty. (5) Seizure Current Visit: Yes Status: Suspected Plan to address problem: Patient just 1 episode of seizure activity would not initiate Or anything like that is particular time we'll observe. History Interval history: Patient no new changes overnight sitting up speaking with family members. All questions or concerns answered. Patient denies chest pain denies shortness of breath. Awaiting cardiac catheterization in the a.m. Hospitalist Physical - Constitutional Vitals: Temp Pulse Resp BP Pulse Ox 97.8 F 56 L 14 138/54 94 08/22/19 12:00 08/22/19 13:51 08/22/19 13:51 08/22/19 13:51 08/22/19 13:51 General appearance: Present: no acute distress - EENT Eyes: Present: PERRL, EOM intact ENT: hearing intact, clear oral mucosa, dentition normal - Neck Neck: Present: supple, normal ROM - Respiratory Respiratory: bilateral: CTA - Cardiovascular Rhythm: regular - Extremities Extremities: no ischemia, pulses intact, No edema, Full ROM Extremity abnormal: edema, cyanosis Peripheral Pulses: within normal limits - Abdominal General gastrointestinal: soft, non-tender, non-distended, normal bowel sounds, no hepatomegaly, no splenomegaly, no mass - Integumentary Integumentary: Present: clear, warm, dry - Psychiatric Psychiatric: appropriate mood/affect, intact judgment & insight, memory intact - Neurologic Neurologic: CNII-XII intact, moves all extremities Results - Labs CBC & Chem 7: 08/21/19 15:04 08/21/19 15:04 Labs: Laboratory Last Values WBC 3.6 K/mm3 (4.5-11.0) L 08/21/19 15:04 RBC 3.17 M/mm3 (3.65-5.03) L 08/21/19 15:04 Hgb 10.5 gm/dl (11.8-15.2) L 08/21/19 15:04 Hct 31.0 % (35.5-45.6) L 08/21/19 15:04 MCV 98 fl (84-94) H 08/21/19 15:04 MCH 33 pg (28-32) H 08/21/19 15:04 MCHC 34 % (32-34) 08/21/19 15:04 RDW 15.3 % (13.2-15.2) H 08/21/19 15:04 Plt Count 157 K/mm3 (140-440) 08/21/19 15:04 Lymph % (Auto) 12.2 % (13.4-35.0) L 08/20/19 13:23 [place] % (Auto) 5.1 % (0.0-7.3) 08/20/19 13:23 Eos % (Auto) 0.5 % (0.0-4.3) 08/20/19 13:23 Baso % (Auto) 0.5 % (0.0-1.8) 08/20/19 13:23 Lymph # 0.5 K/mm3 (1.2-5.4) L 08/20/19 13:23 [place] # 0.2 K/mm3 (0.0-0.8) 08/20/19 13:23 Eos # 0.0 K/mm3 (0.0-0.4) 08/20/19 13:23 Baso # 0.0 K/mm3 (0.0-0.1) 08/20/19 13:23 Seg Neutrophils % 81.7 % (40.0-70.0) H 08/20/19 13:23 Seg Neutrophils # 3.4 K/mm3 (1.8-7.7) 08/20/19 13:23 PT 14.2 Sec. (12.2-14.9) 08/20/19 13:23 INR 1.13 (0.87-1.13) 08/20/19 13:23 APTT 30.2 Sec. (24.2-36.6) 08/20/19 13:23 Sodium 138 mmol/L (137-145) 08/21/19 15:04 Potassium 4.2 mmol/L (3.6-5.0) 08/21/19 15:04 Chloride 107.9 mmol/L (98-107) H 08/21/19 15:04 Carbon Dioxide 24 mmol/L (22-30) 08/21/19 15:04 10 mmol/L 08/21/19 15:04 BUN 16 mg/dL (9-20) 08/21/19 15:04 0.8 mg/dL (0.8-1.5) 08/21/19 15:04 Estimated GFR > 60 ml/min 08/21/19 15:04 20 % 08/21/19 15:04 Glucose 95 mg/dL (75-100) 08/21/19 15:04 POC Glucose 93 (70-105) 08/22/19 10:22 5.0 % (4-6) 08/20/19 21:00 Calcium 7.9 mg/dL (8.4-10.2) L 08/21/19 15:04 Phosphorus 2.20 mg/dL (2.5-4.5) L 08/21/19 15:04 Magnesium 1.90 mg/dL (1.7-2.3) 08/21/19 15:04 0.60 mg/dL (0.1-1.2) 08/21/19 15:04 AST 16 units/L (5-40) 08/21/19 15:04 ALT 7 units/L (7-56) 08/21/19 15:04 60 units/L (35-129) 08/21/19 15:04 106 units/L (55-170) 08/20/19 13:23 CK-MB (CK-2) 3.9 ng/mL (0.0-4.0) 08/20/19 13:23 CK-MB (CK-2) Rel Index 3.6 (0-4) 08/20/19 13:23 < 0.010 ng/mL (0.00-0.029) 08/21/19 03:50 5.6 g/dL (6.3-8.2) L 08/21/19 15:04 3.5 g/dL (3.9-5) L 08/21/19 15:04 1.7 % 08/21/19 15:04 21 units/L (13-60) 08/20/19 13:23 Yellow (Yellow) 08/21/19 00:00 Clear (Clear) 08/21/19 00:00 6.0 (5.0-7.0) 08/21/19 00:00 Ur Specific [place] 1.025 (1.003-1.030) 08/21/19 00:00 <15 mg/dl mg/dL (Negative) 08/21/19 00:00 Neg mg/dL (Negative) 08/21/19 00:00 20 mg/dL (Negative) 08/21/19 00:00 Neg (Negative) 08/21/19 00:00 Neg (Negative) 08/21/19 00:00 Neg (Negative) 08/21/19 00:00 2.0 mg/dL (<2.0) 08/21/19 00:00 Ur Leukocyte Esterase Neg (Negative) 08/21/19 00:00 2.0 /HPF (0.0-6.0) 08/21/19 00:00 3.0 /HPF (0.0-6.0) 08/21/19 00:00 U Epithel Cells (Auto) 2.0 /HPF (0-13.0) 08/21/19 00:00 Hyaline Casts 2 /LPF 08/21/19 00:00 Few /HPF 08/21/19 00:00 Blood Type O NEGATIVE 08/21/19 03:55 Antibody Screen Negative 08/21/19 03:55 Active Medications - Current Medications Current Medications: Generic Name Dose Route Start Last Admin Trade Name Freq PRN Reason Stop Dose Admin Acetaminophen 650 mg 08/20/19 21:00 Tylenol PO Q4H PRN Pain MILD(1-3)/Fever >100.5/HALL Aspirin 325 mg 08/21/19 10:00 08/22/19 10:00 Aspirin PO 325 mg QDAY WILFRED Administration Atorvastatin Calcium 20 mg 08/20/19 22:00 08/21/19 21:19 Lipitor PO 20 mg QHS WILFRED Administration Famotidine 20 mg 08/20/19 22:00 08/22/19 10:00 Pepcid IV 20 mg BID WILFRED Administration Hydromorphone HCl 0.5 mg 08/20/19 21:00 08/22/19 04:54 Dilaudid IV 0.5 mg Q3H PRN Administration Pain , Severe (7-10) Sodium Chloride 1,000 mls @ 100 mls/hr 08/20/19 21:00 08/22/19 04:55 Nacl 0.9% 1000 Ml IV 100 mls/hr DIRECT WILFRED Administration Amiodarone HCl 900 mg/ 500 mls @ 16.667 mls/hr 08/21/19 15:00 08/21/19 12:00 Dextrose IV 0.5 mg/min DIRECT WILFRED 16.667 mls/hr Administration Protocol 0.5 MG/MIN Metoclopramide HCl 10 mg 08/20/19 21:00 Reglan IV Q6H PRN Nausea And Vomiting Metoprolol Tartrate 25 mg 08/20/19 22:00 08/22/19 10:00 Lopressor PO Not Given BID WILFRED Ondansetron HCl 4 mg 08/20/19 21:00 08/22/19 01:28 Zofran IV 4 mg Q3H PRN Administration Nausea And Vomiting Sodium Chloride 10 ml 08/20/19 22:00 08/22/19 10:00 Sodium Chloride Flush Syringe 10 Ml IV 10 ml BID WILFRED Administration Sodium Chloride 10 ml 08/20/19 21:00 Sodium Chloride Flush Syringe 10 Ml IV PRN PRN LINE FLUSH
[2019-08-23] MEDS: HYDROmorphone 1 MG/1 ML INJ IV PRN (04:26)
[2019-08-23 06:34] LABS: Basophils % (Auto) 0.2 % (0.0-1.8); Eosinophils # (Auto) 0.1 K/mm3 (0.0-0.4); Eosinophils % (Auto) 2.9 % (0.0-4.3); Hematocrit 29.8 % (35.5-45.6); Hemoglobin 10.2 gm/dl (11.8-15.2); Lymphocytes # (Auto) 1.1 K/mm3 (1.2-5.4); Lymphocytes % (Auto) 28.3 % (13.4-35.0); Mean Corpuscular HGB Conc 34 % (32-34); Mean Corpuscular Volume 97 fl (84-94); Monocytes # (Auto) 0.5 K/mm3 (0.0-0.8); Monocytes % (Auto) 12.1 % (0.0-7.3); Platelet Count 155 K/mm3 (140-440); Red Blood Count 3.07 M/mm3 (3.65-5.03); Red Cell Distribution Width 15.4 % (13.2-15.2)
[2019-08-23 06:35] LABS: INR 1.15 (0.87-1.13)
[2019-08-23 06:42] LABS: BUN/Creatinine Ratio 16; Blood Urea Nitrogen 11 mg/dL (9-20); Calcium 7.6 mg/dL (8.4-10.2); Hemolysis Index 278
[2019-08-23 07:15] VITALS: BP 145/63
[2019-08-23] MEDS ORDERED: methylPREDNISolone Sod Succinate 125 MG/2 ML INJ ONE (08:54)
[2019-08-23] MEDS ORDERED: diphenhydrAMINE 50 MG/ML VIAL ONE (08:54)
[2019-08-23] MEDS ORDERED: ASPIRIN EC 325 MG TAB PO ONE ×2 (08:54)
[2019-08-23] MEDS ORDERED: FAMOTIDINE 20 MG/2 ML INJ IV ONE (08:58)
[2019-08-23] MEDS ORDERED: MIDAZOLAM 2 MG/2 ML INJ ONE (09:02)
[2019-08-23] MEDS ORDERED: HEPARIN/NS 5000 UNIT/500ML 1,000 ML IR ONE (09:02)
[2019-08-23] MEDS ORDERED: VERAPAMIL 5 MG/2 ML INJ ONE (09:03)
[2019-08-23] MEDS ORDERED: LIDOCAINE (2%) 20 MG/1 ML VIAL 20 ML MDV INFILTRATI ONE (09:03)
[2019-08-23] MEDS ORDERED: fentaNYL 100 MCG/2 ML INJ ONE (09:03)
[2019-08-23] MEDS ORDERED: NITROGLYCERIN SYRINGE 3 ML ONE (09:03)
[2019-08-23] MEDS ORDERED: SODIUM CHLORIDE 0.9% 500 ML 500 ML ONE (09:36)
[2019-08-23] MEDS: HEPARIN 10,000 UNITS/10 ML VIAL ONE ×3 (09:49→10:33)
--- NOTE | 2019-08-23 09:58 | Progress Note ---
Assessment and Plan Ventricular fibrillation Pt presented on 08/20/2019 with n/v/d. He was witnessed to have a brief bout of VFib in ED. ECG with RBBB (which appears chronic), no acute ischemic changes, Lyn negative for AMI. Pt has been seen by Dr. Rios in the past. Lexiscan MPI stress test done 09/2009 showed small to mod size partially reversible mild inferobasal perfusion defect, EF 61%. Echo done 08/20/2019 showed EF 45-50%, RA mildly dilated, mild AR, trace MR and TR. S/p LHC today which showed tight RCA lesion with unsuccessful PCI, bradyarrhythmia noted during LHC and thus TVP placed. Pt to tx to [place] for further eval/management. Nausea, vomiting and diarrhea Resolved. Management per primary. HTN Stable. HLP Cont lipitor. Bradyarrhythmia Pt currently receiving IV amio and PO lopressor s/p VF event. TVP placed today during LHC. 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 Will check thyroid profile. RBBB Chronic. Meniere's disease S/p LHC today which showed tight RCA lesion with unsuccessful PCI, bradyarrhythmia noted during LHC and thus TVP placed. Pt to tx to [place] where Dr. Duarte will accept for further eval/management. The patient has been seen in conjunction with Dr. Jared Joe who agrees with the assessment and plan of care. Subjective Date of service: 08/23/19 Principal diagnosis: VFib Interval history: pt for [facility] today, resting in bed, no current complaints. in SR/SB on tele. Objective Last Vital Signs Temp 98.0 F 08/23/19 04:00 Pulse 47 L 08/23/19 07:30 Resp 13 08/23/19 07:30 BP 145/63 08/23/19 07:30 Pulse Ox 97 08/23/19 07:30 - Physical Examination General: Appears Well HEENT: Positive: PERRL, Normocephaly, Mucus Membranes Moist Neck: Positive: neck supple, trachea midline Cardiac: Positive: Regular Rhythm, S1/S2 Lungs: Positive: Decreased Breath Sounds Neuro: Positive: Grossly Intact Abdomen: Positive: Soft. Negative: Tender Skin: Negative: Rash Musculoskeletal: No Pain Extremities: Present: normal. Absent: edema - Labs and Meds Coagulation 08/23/19 Range/Units Unknown PT 14.4 (12.2-14.9) Sec. INR 1.15 H (0.87-1.13) CBC 08/23/19 Range/Units Unknown WBC 3.8 L (4.5-11.0) K/mm3 RBC 3.07 L (3.65-5.03) M/mm3 Hgb 10.2 L (11.8-15.2) gm/dl Hct 29.8 L (35.5-45.6) % Plt Count 155 (140-440) K/mm3 Lymph # 1.1 L (1.2-5.4) K/mm3 [place] # 0.5 (0.0-0.8) K/mm3 Eos # 0.1 (0.0-0.4) K/mm3 Baso # 0.0 (0.0-0.1) K/mm3 Comprehensive Metabolic Panel 08/23/19 Range/Units 04:00 Sodium 140 (137-145) mmol/L Potassium 4.8 (3.6-5.0) mmol/L Chloride 110.8 H (98-107) mmol/L Carbon Dioxide 23 (22-30) mmol/L BUN 11 (9-20) mg/dL Creatinine 0.7 L (0.8-1.5) mg/dL Glucose 82 (75-100) mg/dL Calcium 7.6 L (8.4-10.2) mg/dL - Imaging and Cardiology EKG: report reviewed, image reviewed Echo: pending - Telemetry EKG Rhythm: Sinus Rhythm - EKG Sinus rhythms and dysrhythmias: sinus rhythm AV and intraventricular conduction: right bundle branch block
[2019-08-23] MEDS ORDERED: FAMOTIDINE 20 MG/2 ML INJ IV NR (10:00)
[2019-08-23] MEDS ORDERED: HEPARIN 10,000 UNITS/10 ML VIAL ONE (10:03)
[2019-08-23] MEDS ORDERED: ATROPINE 0.1% (1 MG/10 ML) CARDIAC SYRINGE ONE (10:25)
[2019-08-23] MEDS ORDERED: HEPARIN/ 0.45% NACL DRIP 25,000 UNIT/500 ML BAG ONE (10:55)
--- NOTE | 2019-08-23 11:51 | Discharge Summary ---
Providers - Providers Date of Admission: 08/20/19 17:19 Date of discharge: 08/23/19 Attending physician: SIL ANSARI 08/20/19 13:39 Consult to Cardiology [CONS] Urgent Consulting Provider: MICHEAL GO Reason For Exam: V fib 08/20/19 21:00 Consult to Physician [CONS] Routine Comment: Consulting Provider: SUSANA ANDERSON Physician Instructions: Reason For Exam: v fib Primary care physician: CARMEN BELLO Hospitalization Condition: Stable Pertinent studies: Echocardiogram which showed ejection fraction 45-50%. Patient had negative cardiac enzymes as well. Hospital course: 88-year-old gentleman with a history of hypertension 2, hyperlipidemia 3. Right bundle branch block originally presented nausea and diarrhea. Upon workup in the ED patient was found to have a brief episode of loss of consciousness with conjugate gaze to the right. Patient rhythm then showed ventricular fibrillation with a subsequent seizure and loss of consciousness. After 15 seconds of chest compressions patient regained consciousness and regained his rhythm. Blood pressure returned to normal. Patient was placed on amiodarone and beta ronak and transferred to the intensive care unit. After approximately 48 hours of no change patient had left heart catheterization which showed tight RCA and unable to perform PCI. Patient also had bradycardia arrhythmia during that time plan to transfer patient to [place] for further evaluation and treatment. TVP was also placed Disposition: [id number]/TX-[id number] ANOTHER TYPE HLTHCARE - Discharge Diagnoses (1) Ventricular fibrillation Status: Acute Comment: Unable to perform left heart cath secondary to bradycardia and tight RCA transferred to [place] for further treatment. (2) HTN (hypertension) Status: Chronic Comment: She does maintain adequate control blood pressure throughout state with beta ronak. (3) Hyperlipidemia Status: Chronic Comment: Statin (4) Meniere's disease Status: Resolved (5) Seizure Status: Suspected Comment: Patient only had this one event less than 15 seconds. Has not had any additional event would not treat at this time. Core Measure Documentation - Palliative Care Palliative Care/ Comfort Measures: Not Applicable - Core Measures Any of the following diagnoses?: none Exam - Constitutional Vitals: Temp Pulse Resp BP Pulse Ox 98.0 F 48 L 18 145/63 98 08/23/19 04:00 08/23/19 09:00 08/23/19 09:00 08/23/19 07:30 08/23/19 09:00 General appearance: Present: no acute distress, well-nourished - EENT Eyes: Present: PERRL ENT: hearing intact, clear oral mucosa - Neck Neck: Present: supple, normal ROM - Respiratory Respiratory effort: normal Respiratory: bilateral: CTA - Cardiovascular Heart Sounds: Present: S1 & S2. Absent: rub, click - Extremities Extremities: pulses symmetrical, No edema Peripheral Pulses: within normal limits - Abdominal General gastrointestinal: Present: soft, non-tender, non-distended, normal bowel sounds Male genitourinary: Present: normal - Integumentary Integumentary: Present: clear, warm, dry - Musculoskeletal Musculoskeletal: gait normal, strength equal bilaterally - Psychiatric Psychiatric: appropriate mood/affect, intact judgment & insight - Neurologic Neurologic: CNII-XII intact, moves all extremities Plan Activity: advance as tolerated, up only with assistance Weight Bearing Status: Weight Bear as Tolerated Diet: low cholesterol, low salt Follow up with: PRIMARY CARE, [Referring] - 3-5 Days
--- NOTE | 2019-08-23 14:41 | Cardiac Catherization Report ---
REFERRING PHYSICIAN: Dr. Mcdowell. PRIMARY APPLICATION OPERATIONS ENGINEER: Dr. Rios. INDICATION FOR PROCEDURE: The patient is a pleasant 88-year-old gentleman who presents with a witnessed VT arrest, referred for left heart catheterization. Risks, benefits, and potential alternatives explained at length prior to obtaining informed consent. PROCEDURE IN DETAIL: The patient was brought to the catheterization lab in a postoperative state, prepped and draped in sterile fashion on IV amiodarone. A hydrophilic sheath used to cannulate the right radial artery via modified Seldinger technique. All exchanges performed to exchange a J-tip guidewire. JL3.5 of catheter engaged the left main. No dampening or ventricularization. Cineangiography performed in all projections. JR4 catheter cross the aortic valve under fluoroscopic guidance. Left ventriculography performed in 30 KINNEY and 30 SYLVIA projections via hand injections, catheter flushed. Manual pullback performed with continuous pressure monitoring. Catheter used to engage the right coronary. No dampening or ventricularization. Cineangiography performed in all projections. Due to likely culprit distal RCA, we decided to proceed with attempted PCI. FINDINGS: Aortic pressure is 160/70, LV pressure is 160, LVP of 20 mmHg. Left ventriculography reveals normal systolic performance with estimated ejection fraction of 55-60%. No evidence of aortic stenosis. CORONARY ANATOMY: Right dominant system. Right coronary is a moderate sized vessel, courses AV groove. There is a complex lesion in the distal right coronary. FELIPE 2 flow is noted. The left main without significant disease, bifurcates left anterior descending and left circumflex. LAD is a moderate sized vessel, courses anterior intergroove, wraps around the apex, no significant disease. Left circumflex courses AV groove, no significant disease. I believe this is the culprit lesion. We attempted PCI. Heparin given. Abnormal ACT is confirmed. Tried multiple guides, eventually an AR1 guide was best for support. We used multiple wires, eventually crossed with a Cho[employer] PT Floppy. Attempted to predilate the vessel, ____ the vessel with the balloon, but unable to really pass the balloon to the level of the lesion due to significant disease, tortuosity. At this point, the patient had significant cas episode. The patient with continued FELIPE 3 flow. I put a right femoral venous sheath in 6-[place] temporary venous pacemaker placed under fluoroscopic guidance backup rate of 40. Final angiogram reveals FELIPE 3 flow of the distal right. I directly supervised the administration of moderate sedation with fentanyl and Versed from 9:44 a.m. to 10:45 a.m. The patient will be transferred to [facility] for complex PCI with surgical backup. The patient is clinically stable, chest pain-free, hemodynamically and electrically stable as well. 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 Successful temporary venous pacemaker placement via right femoral vein. No significant disease in the left system, preserved LV function. The patient will be discussed with the [facility] Dr. Duarte. The patient will be transferred there in stable fashion on amiodarone drip, heparin drip, temporary venous pacemaker placed with a heart rate backup of 40 for complex PCI with surgical backup. Results of procedure explained in length to the patient. All questions and concerns were addressed. JOB# [id number] SBM/NTS
--- NOTE | 2019-08-23 16:33 | Event Note ---
Date: 08/23/19 Patient was off the unit this AM for [facility] when I came by. Note plans for [place] transfer.
== END 2019-08-23 17:27 | disposition short-term general hospital (02) | DRG 287 ==
LOC: ED 12:31 → CC1 17:19
PROVIDERS: ADMIT Internal Medicine; ATTEND Internal Medicine
PROC: 5A12012 Performance of Cardiac Output, Single, Manual (ICD-10-PCS; 2019-08-20)
PROC: 4A023N7 Measurement of Cardiac Sampling and Pressure, Left Heart, Percutaneous Approach (ICD-10-PCS; principal; 2019-08-23)
PROC: B2111ZZ Fluoroscopy of Multiple Coronary Arteries using Low Osmolar Contrast (ICD-10-PCS; 2019-08-23)
PROC: B2151ZZ Fluoroscopy of Left Heart using Low Osmolar Contrast (ICD-10-PCS; 2019-08-23)
PROC: 02JA3ZZ Inspection of Heart, Percutaneous Approach (ICD-10-PCS; 2019-08-23)
PROC: 5A1223Z Performance of Cardiac Pacing, Continuous (ICD-10-PCS; 2019-08-23)
DX: I47.2 Ventricular tachycardia (principal); G40.89 Other seizures; I49.01 Ventricular fibrillation; K29.00 Acute gastritis without bleeding; I10 Essential (primary) hypertension; H81.09 Meniere's disease, unspecified ear; I45.10 Unspecified right bundle-branch block; F03.90 Unspecified dementia, unspecified severity, without behavioral disturbance, psychotic disturbance, mood disturbance, and anxiety; E78.00 Pure hypercholesterolemia, unspecified; K52.9 Noninfective gastroenteritis and colitis, unspecified; I49.8 Other specified cardiac arrhythmias; Z82.49 Family history of ischemic heart disease and other diseases of the circulatory system; Z90.89 Acquired absence of other organs; Z87.891 Personal history of nicotine dependence; Z91.041 Radiographic dye allergy status
CPT/HCPCS: 33210; 36415; 71045; 80048; 80053; 81001; 82550; 82553; 82962; 83036; 83690; 83735; 84100; 84439; 84443; 84484; 85025; 85027; 85347; 85610; 85730; 86850; 86900; 86901; 92920; 93005; 93010; 93306; 93458; 96365; 96375; G0378; A9270-GY; C1725; C1753; C1769; C1887; C1894; J0282; J0461; J1170; J1200; J1644; J2060; J2250; J2405; J2930; J3010; J7030; J7040; J7060; Q9967

== ENCOUNTER 2020-05-19 16:50 | Emergency (ER) | payer MEDICARE ==
[2020-05-19 17:08] VITALS: BP 107/59
[2020-05-19] MEDS ORDERED: predniSONE 20 MG TAB PO ONE (18:08)
--- NOTE | 2020-05-19 18:08 | Event Note ---
ED Screening Note Date of service: 05/19/20 Time: 18:01 ED Screening Note: 89-year-old male presents to the emergency room complaining of a generalized rash. Patient states that he took his meclizine for his vertigo as he suffers from back and the rash has improved. Patient admits that he has dementia and is having a hard time remembering why he is here. 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 She does not know the #[address] Marguerite Oliva which is the daughter per patient. This initial assessment/diagnostic orders/clinical plan/treatment(s) is/are subject to change based on patients health status, clinical progression and re- assessment by fellow clinical providers in the ED. Further treatment and workup at subsequent clinical providers discretion. Patient/guardian urged not to elope from the ED as their condition may be serious if not clinically assessed and managed. Initial orders include:
== END 2020-05-19 18:50 | disposition left against medical advice (07) ==
LOC: ED 16:50
DX: R21 Rash and other nonspecific skin eruption (principal); Z53.21 Procedure and treatment not carried out due to patient leaving prior to being seen by health care provider
CPT/HCPCS: J7512